=== PATIENT | female | born 1950 | race Caucasian/White ===

== ENCOUNTER 2016-11-22 18:13 | Emergency (ER) | payer OTHER ==
[~2016-11-22] VITALS: Ht 152.4 cm; Wt 100.0 kg
[~2016-11-22 18:13] MED LIST: CIPR-9 PO; GABA100C4 PO; HYDR-3533 PO; LISI-519 PO; LOVA10TA PO; PERC5TAB12 PO; PRED10 PO; SERT25TA83 PO; TOPA25TA8 PO; TRAZ50TA12 PO
[2016-11-22 18:15] VITALS: BP 226/102; PULSE 70; RESP 17; TEMP 98.2; O2SAT 98
[2016-11-22] MEDS ORDERED: PROCHLORPERAZINE INJ 10 MG/2 ML VIAL IVP ONE (19:00)
[2016-11-22] MEDS ORDERED: SODIUM CHLORIDE 0.9% FLUSH 10 ML FLUSH IVF PRN (19:00)
[2016-11-22] MEDS ORDERED: SODIUM CHLORID 0.9% 500 ML INJ 500 ML IV ONE (19:00)
[2016-11-22] MEDS ORDERED: diphenhydrAMINE HCL 50 MG/ML VIAL IVP ONE (19:00)
--- NOTE | 2016-11-22 19:20 | PD ---
HPI Chief Complaint: Neuro Symptoms/ Deficits Time Seen by Provider: 19:18 Travel History International Travel<30 days: No Contact w/Intl Traveler<30days: No Traveled to known affect area: No History of Present Illness HPI 66-year-old female presents to the emergency department for evaluation of numbness, tingling. Patient states that she has had tingling and numbness to her head for several months. However, she states that today, she noted some tingling on the left side of her face. She also reports numbness and tingling to her right arm for several months as well. The patient also reports history of migraine headaches for many years. She states she currently has a headache. She states this is consistent with her migraine headaches. She has not taken anything [id number] for her headache. She ran out of her prescribed migraine headache medications. Patient states that she fell in April and she has had the pain to her right arm since. She states that she last fell approximately 3 months ago. She currently saw a neurologist for these symptoms. She called today and stated that now her face was tingling and he told her to come the emergency department. The patient states that her last CT scan showed evidence of a prior stroke, but she did not know of this before. Patient states she is not currently on anticoagulants. PFSH Past Medical History High Cholesterol: Yes Cerebrovascular Accident: Yes Diabetes: Yes Patient Takes Glucophage: No Hypertension: Yes Kidney Stones: Yes Musculoskeletal: Yes (OSTEOGENIC IMPERFECTA) Migraines: Yes Renal Failure: Yes ?: Not Menopausal: Yes Past Surgical History Abdominal Surgery: Yes (PATCHES IN ABD) Hysterectomy: Yes Other Surgery: Yes (L TOTAL KNEE, NECK) Social History Alcohol Use: Yes (OCCASIONALLY ) Tobacco Use: No Substance Use: No Allergies-Medications (Allergen,Severity, Reaction): Coded Allergies: Penicillin (Verified Allergy, Unknown, 11/22/16) Sulfa (Verified Allergy, Unknown, 11/22/16) Reported Meds & Prescriptions Reported Meds & Active Scripts Active Reported Levothyroxine (Levothyroxine Sodium) 88 Mcg Tab 88 Mcg PO DAILY Potassium Chloride ER (Potassium Chloride) 10 Meq Tab 10 Meq PO DAILY Lasix (Furosemide) 20 Mg Tab 20 Mg PO DAILY Dicyclomine (Dicyclomine HCl) 10 Mg Cap 10-20 Mg PO QID PRN Cetirizine (Cetirizine HCl) 10 Mg Tab 10 Mg PO DAILY Depakote ER (Divalproex Sodium) 250 Mg Ayah 250 Mg PO DAILY Baclofen 10 Mg Tab 10 Mg PO BID Trazodone (Trazodone HCl) 100 Mg Tablet 100 Mg PO HS Lisinopril 2.5 Mg Tab 2.5 Mg PO DAILY Gabapentin 600 Mg Tab 600 Mg PO TID Lovastatin 10 Mg Tab 10 Mg PO DAILY Review of Systems Except as stated in HPI: all other systems reviewed are Neg Physical Exam Narrative GENERAL: Well-nourished, well-developed female patient, afebrile. SKIN: Focused skin assessment warm/dry. HEAD: Normocephalic. Atraumatic. EYES: No scleral icterus. No injection or drainage. PERRLA. EOM intact. ENT: Mucosa pink and moist. No erythema or exudates. No uvular edema. No uvular , palatal, or tonsillar deviation. Airway patent. Nasal turbinates appear normal without nasal blood, purulent drainage or septal hematoma. Bilateral tympanic membranes are clear without erythema or perforation. NECK: Supple, trachea midline. No JVD or lymphadenopathy. CARDIOVASCULAR: Regular rate and rhythm without murmurs, gallops, or rubs. RESPIRATORY: Breath sounds equal bilaterally. No accessory muscle use. Lungs sounds are clear to auscultation. GASTROINTESTINAL: Abdomen soft, non-tender, nondistended. MUSCULOSKELETAL: No cyanosis, or edema. BACK: Nontender without obvious deformity. No CVA tenderness. NEUROLOGICAL: Awake and alert. Cranial nerves II through XII intact. Motor and sensory grossly within normal limits. Five out of 5 muscle strength in all muscle groups. Normal speech. Finger to nose is normal bilaterally. Heel-to- sims is normal bilaterally. Data Data Last Documented VS Vital Signs Date Time Temp Pulse Resp B/P Pulse Ox O2 Delivery O2 Flow Rate FiO2 11/22/16 19:41 67 18 175/118 98 Room Air 11/22/16 18:15 98.2 Orders Electrocardiogram (11/22/16 18:51) Basic Metabolic Panel (Bmp) (11/22/16 18:51) Complete Blood Count With Diff (11/22/16 18:51) Magnesium (Mg) (11/22/16 18:51) Ckmb (Isoenzyme) Profile (11/22/16 18:51) Troponin I (11/22/16 18:51) Act Partial Throm Time (Ptt) (11/22/16 18:51) Prothrombin Time / Inr (Pt) (11/22/16 18:51) Ct Brain W/O Iv Contrast(Rout) (11/22/16 18:51) Ecg Monitoring (11/22/16 18:51) Iv Access Insert/Monitor (11/22/16 18:51) Oximetry (11/22/16 18:51) Sodium Chloride 0.9% Flush (Ns Flush) (11/22/16 19:00) Prochlorperazine Inj (Compazine Inj) (11/22/16 19:00) Diphenhydramine Inj (Benadryl Inj) (11/22/16 19:00) Sodium Chlorid 0.9% 500 Ml Inj (Ns 500 M (11/22/16 19:00) Labs Laboratory Tests Test 11/22/16 19:22 White Blood Count 5.5 TH/MM3 Red Blood Count 3.55 MIL/MM3 Hemoglobin 10.8 GM/DL Hematocrit 33.1 % Mean Corpuscular Volume 93.3 FL Mean Corpuscular Hemoglobin 30.5 PG Mean Corpuscular Hemoglobin 32.7 % Concent Red Cell Distribution Width 14.6 % Platelet Count 247 TH/MM3 Mean Platelet Volume 10.2 FL Neutrophils (%) (Auto) 49.1 % Lymphocytes (%) (Auto) 25.1 % Monocytes (%) (Auto) 8.7 % Eosinophils (%) (Auto) 16.0 % Basophils (%) (Auto) 1.1 % Neutrophils # (Auto) 2.7 TH/MM3 Lymphocytes # (Auto) 1.4 TH/MM3 Monocytes # (Auto) 0.5 TH/MM3 Eosinophils # (Auto) 0.9 TH/MM3 Basophils # (Auto) 0.1 TH/MM3 CBC Comment DIFF FINAL Differential Comment Prothrombin Time 10.0 SEC Prothromb Time International 0.9 RATIO Ratio Activated Partial 24.3 SEC Thromboplast Time Sodium Level 137 MEQ/L Potassium Level 5.1 MEQ/L Chloride Level 105 MEQ/L Carbon Dioxide Level 26.1 MEQ/L Anion Gap 6 MEQ/L Blood Urea Nitrogen 18 MG/DL Creatinine 1.59 MG/DL Estimat Glomerular Filtration 32 ML/MIN Rate Random Glucose 158 MG/DL Calcium Level 8.9 MG/DL Magnesium Level 2.1 MG/DL Total Creatine Kinase 88 U/L Troponin I LESS THAN 0.02 NG/ML MDM Medical Decision Making Medical Screen Exam Complete: Yes Emergency Medical Condition: Yes Medical Record Reviewed: Yes Interpretation(s) Last Impressions Head CT 11/22/16 9193 Signed Impressions: Service Date/Time: Tuesday, November 22, 2016 19:05 - CONCLUSION: Negative noncontrast CT brain. No evidence of hemorrhage. Giovanni Lerma MD Differential Diagnosis Migraine headache versus atypical migraine headache versus intracranial abnormality versus electrolyte abnormality Narrative Course 66-year-old female presents to the emergency department for evaluation of headache, numbness and tingling. These symptoms do appear chronic when speaking to the patient. EKG, CBC, BMP, magnesium, CK, troponin, PTT, PTT/INR, CT of the brain ordered and pending. Patient is given normal saline 500 mL bolus, Compazine 10 mg IV, Benadryl 25 mg IV. EKG shows sinus rhythm, heart rate 62, no acute ST changes. CBC shows slight anemia with hemoglobin 10.8, hematocrit 33.1. BMP shows elevated creatinine of 1.59, glucose 158. Magnesium is 2.1. CK is 88. Troponin is less than 0.02. Coags are unremarkable. CT of the brain is negative. Upon reexamination, patient states she would like to go home. I discussed the case with attending physician, Dr. Reveles, who agrees with plan and disposition. The patient was discharged in stable condition with instructions, including return instructions and follow up instructions. Diagnosis Primary Impression: Migraine headache Qualified Code: G43.909 - Migraine without status migrainosus, not intractable , unspecified migraine type Referrals: Neurologist 2 days Patient Instructions: General Instructions, Migraine Headache (ED) Additional Instructions: Follow-up with your primary care physician. Return to the emergency department for any acute worsening of symptoms. Med/Other Pt SpecificInfo: No Change to Meds Disposition: 01 DISCHARGE HOME Condition: Stable Lashanda Smith Nov 22, 2016 19:20
[2016-11-22] MEDS ORDERED: FURO1TAB62 PO (19:30)
[2016-11-22] MEDS ORDERED: DICY10CA12 PO (19:30)
[2016-11-22] MEDS ORDERED: POTA10TA2 PO (19:30)
[2016-11-22] MEDS ORDERED: LEVO88TA2 PO (19:30)
[2016-11-22] MEDS ORDERED: LISI2.5T3 PO (19:30)
[2016-11-22] MEDS ORDERED: CETI10 PO (19:30)
[2016-11-22] MEDS ORDERED: TRAZ100T6 PO (19:30)
[2016-11-22] MEDS ORDERED: BACL10TA PO (19:30)
[2016-11-22] MEDS ORDERED: DIVA250ER PO (19:30)
[2016-11-22] MEDS ORDERED: GABA600T PO (19:30)
[2016-11-22 19:40] VITALS: RESP 18; O2SAT 97
[2016-11-22 19:41] VITALS: BP 175/118; PULSE 67; RESP 18; O2SAT 98
--- NOTE | 2016-11-22 19:56 | RADRPT ---
EXAM DATE/TIME: 11/22/2016 19:05 [facility] COMPARISON: CT BRAIN W/O CONTRAST, May 21, 2016, 13:58. INDICATIONS : Cephalgia with right arm numbness and elevated blood pressure. RADIATION DOSE: 56.35 CTDIvol (mGy) MEDICAL HISTORY : Hypertension. Diabetes mellitus type 2. CVA. SURGICAL HISTORY : Hysterectomy. Neck surgery. ENCOUNTER: Initial ACUITY: 1 day PAIN SCALE: 6/10 LOCATION: cranial TECHNIQUE: Multiple contiguous axial images were obtained of the head. Using automated exposure control and adj ustment of the mA and/or kV according to patient size, radiation dose was kept as low as reasonably a chievable to obtain optimal diagnostic quality images. DICOM format image data is available electro nically for review and comparison. FINDINGS: CEREBRUM: The ventricles are normal for age. No evidence of midline shift, mass lesion, hemorrhage or acute in farction. No extra-axial fluid collections are seen. POSTERIOR FOSSA: The cerebellum and brainstem are intact. The 4th ventricle is midline. The cerebellopontine angle i s unremarkable. EXTRACRANIAL: The visualized portion of the orbits is intact. SKULL: The calvaria is intact. No evidence of skull fracture. CONCLUSION: Negative noncontrast CT brain. No evidence of hemorrhage. Giovanni Lerma MD on November 22, 2016 at 19:52 Board Certified Radiologist. This report was verified electronically.
[2016-11-22 19:58] LABS: AUTOMATED NEUTROPHIL # 2.7 TH/MM3 (1.8-7.7); BASOPHIL # 0.1 TH/MM3 (0-0.2); BASOPHIL % 1.1 % (0.0-2.0); EOSINOPHIL # 0.9 TH/MM3 (0-0.4); HEMATOCRIT 33.1 % (35.0-46.0); HEMO FLAGS DIFF FINAL; LYMPH % 25.1 % (9.0-44.0); LYMPHOCYTE # 1.4 TH/MM3 (1.0-4.8); MEAN CELL VOLUME 93.3 FL (80.0-100.0); MEAN CORPUSCULAR HEMOGLOBIN 30.5 PG (27.0-34.0); MEAN CORPUSCULAR HGB CONC 32.7 % (32.0-36.0); MONO % 8.7 % (0.0-8.0); NEUT % 49.1 % (16.0-70.0); PLATELET COUNT 247 TH/MM3 (150-450); RED BLOOD COUNT 3.55 MIL/MM3 (4.00-5.30); RED CELL DISTRIBUTION WIDTH 14.6 % (11.6-17.2); WHITE BLOOD COUNT 5.5 TH/MM3 (4.0-11.0)
[2016-11-22 20:08] LABS: APTT (PATIENT) 24.3 SEC (24.3-30.1); INTERNATIONAL NORMALIZED RATIO 0.9 RATIO
[2016-11-22 20:26] LABS: BICARBONATE 26.1 MEQ/L (21.0-32.0); BLOOD UREA NITROGEN 18 MG/DL (7-18); GLOMERULAR FILTRATION RATE 32 ML/MIN (>89); MAGNESIUM 2.1 MG/DL (1.5-2.5)
[2016-11-22 20:37] LABS: ANION GAP 6 MEQ/L (5-15); CHLORIDE 105 MEQ/L (98-107); SODIUM (NA) 137 MEQ/L (136-145)
[2016-11-22 20:38] LABS: CREATINE KINASE 88 U/L (26-192); POTASSIUM 5.1 MEQ/L (3.5-5.1)
--- NOTE | 2016-11-23 13:19 | EKG ---
Date Performed: 11/22/2016 Time Performed: 19:28:28 PTAGE: 66 years EKG: Sinus rhythm NORMAL ECG NO PREVIOUS TRACING DOCTOR: Tyler Victoria Interpretating Date/Time 11/23/2016 13:15:04
== END 2016-11-22 21:34 | disposition home or self-care (01) ==
LOC: NEPE 18:13
DX: G43.909 Migraine, unspecified, not intractable, without status migrainosus (principal); E78.00 Pure hypercholesterolemia, unspecified; E11.9 Type 2 diabetes mellitus without complications; I12.9 Hypertensive chronic kidney disease with stage 1 through stage 4 chronic kidney disease, or unspecified chronic kidney disease; E11.22 Type 2 diabetes mellitus with diabetic chronic kidney disease; N18.9 Chronic kidney disease, unspecified
CPT/HCPCS: 70450; 80048; 82550; 83735; 84484; 85025; 85610; 85730; 93005; 96361; 96374; 96375; 99285; J0780; J1200; J7040

== ENCOUNTER 2017-05-11 18:11 | Emergency (ER) | payer OTHER ==
[~2017-05-11 18:11] MED LIST changes: +BUTATAB6; +CETI10 PO; -CIPR-9 PO; +DICY10CA12 PO; +DIVA250ER PO; +FURO1TAB62 PO; -GABA100C4 PO; +GABA600T PO; -HYDR-3533 PO; +LEVO88TA2 PO; -LISI-519 PO; +LISI2.5T3 PO; -LOVA10TA PO; +NOVOLOGMXP SQ; +PANT40TA3 PO; -PERC5TAB12 PO; +POTA10TA2 PO; -PRED10 PO; -SERT25TA83 PO; -TOPA25TA8 PO; +TRAZ100T10 PO; -TRAZ50TA12 PO; +ZOLO25TA PO
[2017-05-11 18:21] VITALS: BP 133/77; PULSE 100; RESP 18; TEMP 98.6; O2SAT 97
--- NOTE | 2017-05-11 18:53 | PD ---
HPI Chief Complaint: Edema Time Seen by Provider: 18:31 Travel History International Travel<30 days: No Contact w/Intl Traveler<30days: No Traveled to known affect area: No History of Present Illness HPI 66 years old female complains of bilateral lower extremity swelling, shortness of breath and rash. Patient states that the symptoms started about 4 weeks ago. Patient has history of chronic kidney disease and has been seen by machine assembler in the past. Patient had kidney ultrasound the past and was told that she has problem with the right kidney. Patient is not on any diuretics. Patient denies any headache. Patient denies any chest pain. Patient states that she has shortness of breath and dyspnea on exertion. Patient denies abdominal pain. Patient denies any nausea vomiting diarrhea. Patient denies any lower extremity pain. Patient states that she had progressive swelling of the lower extremity for the past 4 weeks, worse since last night. Patient denies any recent injury to lower extremity. Patient denies history of DVT or PE. Patient has history hypertension, diabetes, hyperlipidemia. Patient is a nonsmoker. Patient denies any history of CHF. Patient was on Lasix in the past but not recently. PFSH Past Medical History High Cholesterol: Yes Cerebrovascular Accident: Yes Diabetes: Yes Hypertension: Yes Kidney Stones: Yes Musculoskeletal: Yes (OSTEOGENIC IMPERFECTA) Migraines: Yes Renal Failure: Yes ?: Not Menopausal: Yes Past Surgical History Abdominal Surgery: Yes (PATCHES IN ABD) Hysterectomy: Yes Other Surgery: Yes (L TOTAL KNEE, NECK) Social History Alcohol Use: Yes (OCCASIONALLY ) Tobacco Use: No Substance Use: No Allergies-Medications (Allergen,Severity, Reaction): Coded Allergies: Sulfa (Sulfonamide Antibiotics) (Unverified Allergy, Unknown, 05/11/17) aripiprazole (Unverified Allergy, Unknown, 05/11/17) fentanyl (Unverified Allergy, Unknown, 05/11/17) penicillin G (Unverified Allergy, Unknown, 05/11/17) Reported Meds & Prescriptions Reported Meds & Active Scripts Active Reported Novolog Mix 70-30 Inj (Insulin Aspart Prota 70%/Aspart 30%) 1,000 Unit/10 Ml Vial 10 Units SQ BID Zoloft (Sertraline HCl) 25 Mg Tab 25 Mg PO DAILY Pantoprazole (Pantoprazole Sodium) 40 Mg Tab 40 Mg PO DAILY Zqpzcshxgi-Irpulhssmmjtg-Sqvdccqg 50-325-40 Mg Tab Levothyroxine (Levothyroxine Sodium) 88 Mcg Tab 88 Mcg PO DAILY Potassium Chloride ER (Potassium Chloride) 10 Meq Tab 10 Meq PO DAILY Lasix (Furosemide) 20 Mg Tab 20 Mg PO DAILY Dicyclomine (Dicyclomine HCl) 10 Mg Cap 10-20 Mg PO QID PRN Cetirizine (Cetirizine HCl) 10 Mg Tab 10 Mg PO DAILY Depakote ER (Divalproex Sodium) 250 Mg Ayah 250 Mg PO DAILY Trazodone (Trazodone HCl) 100 Mg Tablet 100 Mg PO HS Lisinopril 2.5 Mg Tab 2.5 Mg PO DAILY Gabapentin 600 Mg Tab 600 Mg PO TID Review of Systems General / Constitutional: No: Fever Eyes: No: Visual changes HENT: No: Headaches Cardiovascular: No: Chest Pain or Discomfort Respiratory: No: Shortness of Breath Gastrointestinal: No: Abdominal Pain Genitourinary: No: Dysuria Musculoskeletal: No: Pain Skin: No Rash Neurologic: No: Weakness Psychiatric: No: Depression Endocrine: No: Polydipsia Hematologic/Lymphatic: No: Easy Bruising Physical Exam Narrative GENERAL: Well-nourished, well-developed patient. SKIN: Focused skin assessment warm/dry. Patient has diffuse papular rash bilaterally lower extremity anteriorly. HEAD: Normocephalic. EYES: No scleral icterus. No injection or drainage. NECK: Supple, trachea midline. No JVD or lymphadenopathy. CARDIOVASCULAR: Regular rate and rhythm without murmurs, gallops, or rubs. RESPIRATORY: Breath sounds equal bilaterally. No accessory muscle use. GASTROINTESTINAL: Abdomen soft, non-tender, nondistended. MUSCULOSKELETAL: No cyanosis. Patient had +2 pitting edema lower extremity. No redness no heat noted tenderness on palpation of the calf Area. Negative Homans sign. BACK: Nontender without obvious deformity. No CVA tenderness. Neurologic exam normal. Data Data Last Documented VS Vital Signs Date Time Temp Pulse Resp B/P (MAP) Pulse Ox O2 Delivery O2 Flow Rate FiO2 05/11/17 18:21 98.6 100 18 133/77 (95) 97 Orders Orders Complete Blood Count With Diff (05/11/17 18:39) Comprehensive Metabolic Panel (05/11/17 18:39) B-Type Natriuretic Peptide (05/11/17 18:39) Prothrombin Time / Inr (Pt) (05/11/17 18:39) Act Partial Throm Time (Ptt) (05/11/17 18:39) Urinalysis - C+S If Indicated (05/11/17 18:39) Thyroid Stimulating Hormone (05/11/17 18:39) Chest, Single Ap (05/11/17 18:39) Iv Access Insert/Monitor (05/11/17 18:39) Ecg Monitoring (05/11/17 18:39) Oximetry (05/11/17 18:39) Us Leg Venous Doppler Bilat (05/11/17 18:39) MDM Medical Decision Making Medical Screen Exam Complete: Yes Emergency Medical Condition: Yes Differential Diagnosis Differential diagnosis including acute exacerbation of chronic kidney disease, dependent edema, DVT. Narrative Course 66-year-old female with low extremity swelling and papular rash. History of chronic kidney disease. Cortes Kohli MD May 11, 2017 18:53
[2017-05-11 19:08] LABS: BASOPHIL # 0.3 TH/MM3 (0-0.2); BASOPHIL % 4.9 % (0.0-2.0); EOSINOPHIL # 0.2 TH/MM3 (0-0.4); EOSINOPHIL % 3.3 % (0.0-4.0); HEMATOCRIT 32.1 % (35.0-46.0); HEMOGLOBIN 10.3 GM/DL (11.6-15.3); LYMPH % 20.8 % (9.0-44.0); LYMPHOCYTE # 1.3 TH/MM3 (1.0-4.8); MEAN CORPUSCULAR HEMOGLOBIN 29.8 PG (27.0-34.0); MONO % 8.1 % (0.0-8.0); MONOCYTE # 0.5 TH/MM3 (0-0.9); NEUT % 62.9 % (16.0-70.0); PLATELET COUNT 284 TH/MM3 (150-450); RED BLOOD COUNT 3.45 MIL/MM3 (4.00-5.30); RED CELL DISTRIBUTION WIDTH 13.6 % (11.6-17.2); WHITE BLOOD COUNT 6.3 TH/MM3 (4.0-11.0)
[2017-05-11 19:17] VITALS: BP 105/68; PULSE 90; RESP 18; O2SAT 98
--- NOTE | 2017-05-11 19:24 | RADRPT ---
EXAM DATE/TIME: 05/11/2017 18:50 [facility] COMPARISON: CT THORAX W/O CONTRAST, May 21, 2016, 14:01. INDICATIONS : Short of breath. MEDICAL HISTORY : Hypertension. Diabetes mellitus type 2. CVA. SURGICAL HISTORY : Hysterectomy. ENCOUNTER: Initial ACUITY: 1 day PAIN SCORE: 0/10 LOCATION: Bilateral chest FINDINGS: A single view of the chest demonstrates the lungs to be symmetrically aerated without evidence of mas s, infiltrate or effusion. The cardiomediastinal contours are unremarkable. There are multiple bila teral fractures of the lateral mid and lower ribs, age indeterminate. There is a displaced fracture with out bridging callus on the right side of the lateral right 6th rib suggesting acute fracture. N o evidence of pneumothorax.. CONCLUSION: 1. The lungs are clear. 2. Multiple bilateral rib fractures; at least one of them (right lateral 6th rib) appears acute. Giovanni Lerma MD on May 11, 2017 at 19:20 Board Certified Radiologist. This report was verified electronically.
[2017-05-11 19:36] LABS: CHLORIDE 106 MEQ/L (98-107); SODIUM (NA) 139 MEQ/L (136-145)
[2017-05-11 19:39] LABS: BICARBONATE 24.2 MEQ/L (21.0-32.0); CALCIUM 8.1 MG/DL (8.5-10.1); GLUCOSE,RANDOM 97 MG/DL (74-106)
[2017-05-11 19:40] LABS: BLOOD UREA NITROGEN 28 MG/DL (7-18)
[2017-05-11 19:42] LABS: ALT (GPT) 24 U/L (10-53)
[2017-05-11 19:43] LABS: AST (GOT) 16 U/L (15-37); GLOMERULAR FILTRATION RATE 32 ML/MIN (>89)
[2017-05-11 19:44] LABS: TOTAL BILIRUBIN ADULT 0.5 MG/DL (0.2-1.0); TOTAL PROTEIN 6.4 GM/DL (6.4-8.2)
[2017-05-11 19:45] LABS: ALKALINE PHOSPHATASE 145 U/L (45-117)
--- NOTE | 2017-05-11 20:16 | RADRPT ---
EXAM DATE/TIME: 05/11/2017 19:21 [facility] COMPARISON: No previous studies available for comparison. INDICATIONS : Bilateral leg swelling. MEDICAL HISTORY : Stroke. Hypercholesterolemia. Gastroesophageal reflux disease. Glasses. Neuropathy. Hyperlipidemia. H ypertension. Cervical cancer. Renal failure. Kidney stones. Hypothyroidism. Diabetes. Anxiety. Depres lauren. SURGICAL HISTORY : Appendectomy.Cholecystectomy. Hysterectomy.Bilateral cataract surgery. Gastric bypass surgery. Lumpec adilene. Oophorectomy. Bladder surgery. Spinal surgery. Left knee replacement. ENCOUNTER: Initial ACUITY: 1 week PAIN SCORE: 5/10 LOCATION: Bilateral legs. TECHNIQUE: Venous ultrasound of the left and right leg was performed from the inguinal ligament to the proximal calf. Real-time, color Doppler and spectral tracing, compression and augmentation techniques were us ed. FINDINGS: RIGHT LEG: There is normal compressibility of the deep venous system from the inguinal region to the proximal ca lf. No echogenic clot is seen in the lumen of the common femoral, femoral, popliteal, veins. LEFT LEG: There is normal compressibility of the deep venous system from the inguinal region to the proximal ca lf. No echogenic clot is seen in the lumen of the common femoral, femoral, popliteal, veins. CONCLUSION: No evidence of deep venous thrombosis bilateral lower extremities. Giovanni Lerma MD on May 11, 2017 at 20:13 Board Certified Radiologist. This report was verified electronically.
[2017-05-11 20:58] VITALS: BP 158/84; PULSE 88; RESP 18; O2SAT 99
[2017-05-11 21:01] LABS: BILIRUBIN, URINE NEG (NEG); GLUCOSE,URINE NEG (NEG); KETONE, URINE NEG (NEG); NITRITE,URINE POS (NEG); PH, URINE 5.5 (5.0-8.5); URINE LEUKOCYTE ESTERASE MOD (NEG)
[2017-05-11 21:03] LABS: BLOOD, URINE TRACE (NEG)
[2017-05-11 21:04] LABS: URINE COLOR YELLOW (YELLW/STRAW)
[2017-05-11 21:06] LABS: BACTERIA, URINE MANY /hpf
[2017-05-11] MEDS ORDERED: KETOROLAC TROMETHAMINE 30 MG/ML (IVP) VIAL IV PUSH ONE (21:30)
[2017-05-11] MEDS ORDERED: oxyCODONE/ACETAMINOPHEN 5 MG/325 MG TAB PO ONE (21:30)
[2017-05-11 22:40] VITALS: BP 140/71; PULSE 82; RESP 18; O2SAT 98
--- NOTE | 2017-05-11 23:01 | RADRPT ---
EXAM DATE/TIME: 05/11/2017 21:38 [facility] COMPARISON: CT THORAX W/O CONTRAST, May 21, 2016, 14:01. INDICATIONS : Abnormal chest radiograph. Evaluate rib fractures. RADIATION DOSE: 28.50 CTDIvol (mGy) ; Patient body habitus MEDICAL HISTORY : Cardiovascular disease. Diabetes mellitus type 2. Osteogenesis imperfecta. SURGICAL HISTORY : None. ENCOUNTER: Initial ACUITY: 1 day PAIN SCALE: 0/10 LOCATION: chest TECHNIQUE: Volumetric scanning of the chest was performed. Using automated exposure control and adjustment of t he mA and/or kV according to patient size, radiation dose was kept as low as reasonably achievable to obtain optimal diagnostic quality images. DICOM format image data is available electronically for r eview and comparison. Follow-up recommendations for detected pulmonary nodules are based at a minimum on nodule size and pa tient risk factors according to Fleischner Society Guidelines. FINDINGS: LUNGS: There is no consolidation or pneumothorax. No concerning pulmonary nodule is visualized. PLEURAE: There is no pleural thickening or pleural effusion. MEDIASTINUM: The heart and great vessels demonstrate no acute abnormality. There is no mediastinal or hilar lymph adenopathy. AXILLAE: Within normal limits. No lymphadenopathy. MUSCULOSKELETAL: Multiple old left rib fractures are similar in appearance to 2016. On the right side, there are mult iple old rib fractures which are similar in configuration and appearance to prior examination in 2016 . There is one new rib fracture since the 2016 exam, lateral right 6th rib, but there appears to be some bridging callus across the fracture signifying that this is not acute. CONCLUSION: No acute findings in the chest. Multiple healed bilateral rib fractures. Giovanni Lerma MD on May 11, 2017 at 22:55 Board Certified Radiologist. This report was verified electronically.
[2017-05-11] MEDS ORDERED: IBUP-232 PO (23:24)
[2017-05-11] MEDS ORDERED: PERC5TAB12 PO (23:24)
--- NOTE | 2017-05-11 23:24 | PD ---
Physical Exam Date Seen by Provider: May 11, 2017 Time Seen by Provider: 19:30 Narrative Patient is having pain on her right rib area where she fell backwards after she received a shock from her hot plate apparently. She twisted in a weird way did not fall to the ground and she felt a pop and has pain in her right ribs. Signed out to me for follow-up of the ultrasounds to rule out DVTs in her lower extremities which were negative. And x-ray shows a fracture in the right rib but it reports multiple rib fractures. I do a CT to rule out what is old and what is no and there seems to be only one new rib fracture on the right. She is given Percocet and Toradol she feels better I will discharge her with [place] cortisone cream for her legs which possibly had aren't allergic reaction she will have follow-up about her leg edema and Lasix with her doctor and I will give her pain medication for the rib fracture discharged home. Data Data Last Documented VS Vital Signs Date Time Temp Pulse Resp B/P (MAP) Pulse Ox O2 Delivery O2 Flow Rate FiO2 05/11/17 22:43 Room Air 05/11/17 22:40 82 18 140/71 (94) 98 05/11/17 18:21 98.6 Orders Orders Complete Blood Count With Diff (05/11/17 18:39) Comprehensive Metabolic Panel (05/11/17 18:39) B-Type Natriuretic Peptide (05/11/17 18:39) Prothrombin Time / Inr (Pt) (05/11/17 18:39) Act Partial Throm Time (Ptt) (05/11/17 18:39) Urinalysis - C+S If Indicated (05/11/17 18:39) Thyroid Stimulating Hormone (05/11/17 18:39) Chest, Single Ap (05/11/17 18:39) Iv Access Insert/Monitor (05/11/17 18:39) Ecg Monitoring (05/11/17 18:39) Oximetry (05/11/17 18:39) Us Leg Venous Doppler Bilat (05/11/17 18:39) Urine Culture (05/11/17 20:50) Oxycodone-Acetamin 5-325 Mg (Percocet (05/11/17 21:30) Ketorolac Inj (Toradol Inj) (05/11/17 21:30) Ct Thorax/ Chest Wo Iv Contras (05/11/17 ) Labs Laboratory Tests Test 05/11/17 19:00 05/11/17 20:50 White Blood Count 6.3 TH/MM3 Red Blood Count 3.45 MIL/MM3 Hemoglobin 10.3 GM/DL Hematocrit 32.1 % Mean Corpuscular Volume 93.0 FL Mean Corpuscular Hemoglobin 29.8 PG Mean Corpuscular Hemoglobin Concent 32.0 % Red Cell Distribution Width 13.6 % Platelet Count 284 TH/MM3 Mean Platelet Volume 8.0 FL Neutrophils (%) (Auto) 62.9 % Lymphocytes (%) (Auto) 20.8 % Monocytes (%) (Auto) 8.1 % Eosinophils (%) (Auto) 3.3 % Basophils (%) (Auto) 4.9 % Neutrophils # (Auto) 4.0 TH/MM3 Lymphocytes # (Auto) 1.3 TH/MM3 Monocytes # (Auto) 0.5 TH/MM3 Eosinophils # (Auto) 0.2 TH/MM3 Basophils # (Auto) 0.3 TH/MM3 CBC Comment DIFF FINAL Differential Comment Prothrombin Time 10.0 SEC Prothromb Time International Ratio 1.0 RATIO Activated Partial Thromboplast Time 23.7 SEC Blood Urea Nitrogen 28 MG/DL Creatinine 1.60 MG/DL Random Glucose 97 MG/DL Total Protein 6.4 GM/DL Albumin 3.0 GM/DL Calcium Level 8.1 MG/DL Alkaline Phosphatase 145 U/L Aspartate Amino Transf (AST/SGOT) 16 U/L Alanine Aminotransferase (ALT/SGPT) 24 U/L Total Bilirubin 0.5 MG/DL Sodium Level 139 MEQ/L Potassium Level 4.4 MEQ/L Chloride Level 106 MEQ/L Carbon Dioxide Level 24.2 MEQ/L Anion Gap 9 MEQ/L Estimat Glomerular Filtration Rate 32 ML/MIN B-Type Natriuretic Peptide 8 PG/ML Thyroid Stimulating Hormone 3rd Gen 1.540 uIU/ML Urine Color YELLOW Urine Turbidity CLOUDY Urine pH 5.5 Urine Specific [place] 1.012 Urine Protein NEG mg/dL Urine Glucose (UA) NEG mg/dL Urine Ketones NEG mg/dL Urine Occult Blood TRACE Urine Nitrite POS Urine Bilirubin NEG Urine Leukocyte Esterase MOD Urine RBC 3-5 /hpf Urine WBC 20-24 /hpf Urine Squamous Epithelial Cells 6-8 /hpf Urine Bacteria MANY /hpf Microscopic Urinalysis Comment CULTURE INDICATED MDM Supervised Visit with JARED: No Diagnosis Primary Impression: Right rib fracture Qualified Codes: S22.31XA - Fracture of one rib, right side, initial encounter for closed fracture Additional Impression: Leg edema Scripts Hydrocortisone Topical (Hydrocortisone Topical) 1% Cream 1 APPLIC TOPICAL BID for Rash/Inflammation, #30 GM 2 Refills Prov: Niles Cortez MD 05/11/17 Ibuprofen (Ibuprofen) 600 Mg Tab 600 MG PO Q6H Y for PAIN, #20 TAB 0 Refills Prov: Niles Cortez MD 05/11/17 Oxycodone-Acetaminophen (Percocet) 5-325 mg Tab 1 TAB PO Q6H Y for PAIN, #15 TAB 0 Refills Prov: Niles Cortez MD 05/11/17 Disposition: 01 DISCHARGE HOME Condition: Good Niles Cortez MD May 11, 2017 23:24
[2017-05-11] MEDS ORDERED: HYDR1CRE TOPICAL (23:26)
== END 2017-05-11 23:38 | disposition home or self-care (01) ==
LOC: PHED 18:11
DX: S22.31XA Fracture of one rib, right side, initial encounter for closed fracture (principal); R60.0 Localized edema; E78.00 Pure hypercholesterolemia, unspecified; E11.22 Type 2 diabetes mellitus with diabetic chronic kidney disease; I12.9 Hypertensive chronic kidney disease with stage 1 through stage 4 chronic kidney disease, or unspecified chronic kidney disease; Q78.0 Osteogenesis imperfecta; N39.0 Urinary tract infection, site not specified; B96.20 Unspecified Escherichia coli [E. coli] as the cause of diseases classified elsewhere; B96.1 Klebsiella pneumoniae [K. pneumoniae] as the cause of diseases classified elsewhere; Z16.11 Resistance to penicillins; Z16.23 Resistance to quinolones and fluoroquinolones; Z86.73 Personal history of transient ischemic attack (TIA), and cerebral infarction without residual deficits; Z79.4 Long term (current) use of insulin
CPT/HCPCS: 71010; 71250; 80053; 81001; 83880; 84443; 85025; 85610; 85730; 87077; 87086; 87186; 93970; 96374; 99285; J1885

== ENCOUNTER 2017-05-15 17:34 | Inpatient (IN) | payer OTHER, MEDICARE ==
[~2017-05-15] VITALS: Ht 152.4 cm; Wt 119.9 kg
[~2017-05-15 17:34] MED LIST changes: -BUTATAB6; -DICY10CA12 PO; -DIVA250ER PO; -FURO1TAB62 PO; +HYDR1CRE TOPICAL; +IBUP-232 PO; -LISI2.5T3 PO; +PERC5TAB12 PO; -POTA10TA2 PO; -ZOLO25TA PO
[2017-05-15 17:44] VITALS: BP 142/72; PULSE 112; RESP 19; TEMP 98.4; O2SAT 98
[2017-05-15 17:48] VITALS: BP 142/72; PULSE 112; RESP 19; TEMP 98.4; O2SAT 98
[2017-05-15] MEDS ORDERED: ACETAMINOPHEN/HYDROcodone 325 MG/5 MG TAB PO ONE (18:00)
--- NOTE | 2017-05-15 18:31 | RADRPT ---
EXAM DATE/TIME: 05/15/2017 17:47 [facility] COMPARISON: No previous studies available for comparison. INDICATIONS : Pain post fall. MEDICAL HISTORY : Osteogenic imperfecta, osteoarthritis, fibromyalgia. SURGICAL HISTORY : Cervical fusion, Left knee, bilateral arthroscopy. ENCOUNTER: Initial ACUITY: 1 day PAIN SCORE: 10/10 LOCATION: Left Ankle FINDINGS: 3 views of left ankle. Oblique fracture of the distal fibula shaft with 3 mm displacement. Horizontal medial malleolus fracture with 6 mm displacement. Moderate sized plantar calcaneal spur. CONCLUSION: Fractures of the medial malleolus and distal fibula shaft. Sohan Ortiz MD on May 15, 2017 at 18:27 Board Certified Radiologist. This report was verified electronically.
[2017-05-15] MEDS ORDERED: HYDROmorphone HCL PF 4 MG/ML VIAL IM ONE (18:45)
[2017-05-15] MEDS ORDERED: PERC5TAB12 PO (18:47)
--- NOTE | 2017-05-15 18:47 | PD ---
HPI . Ankle injury Chief Complaint: Fall Time Seen by Provider: 17:39 Travel History International Travel<30 days: No Contact w/Intl Traveler<30days: No Traveled to known affect area: No History of Present Illness HPI Patient presents to us via [facility] dermis stepping getting into her car and twisting her left ankle. She comes in complaining with 10 out of 10 left ankle pain. She denies any other injuries. Pain is exacerbated by palpation. She has not been able to stand on the ankle since the accident occurred. PFSH Past Medical History Cardiovascular Problems: Yes High Cholesterol: Yes Cerebrovascular Accident: Yes Diabetes: Yes Patient Takes Glucophage: No Hypertension: Yes Kidney Stones: Yes Musculoskeletal: Yes (OSTEOGENIC IMPERFECTA) Respiratory: Yes Migraines: Yes Renal Failure: Yes Influenza Vaccination: No Menopausal: Yes Past Surgical History Abdominal Surgery: Yes (PATCHES IN ABD) Appendectomy: Yes Cholecystectomy: Yes Hysterectomy: Yes Other Surgery: Yes (L TOTAL KNEE, NECK) Social History Alcohol Use: No Tobacco Use: No Substance Use: No Allergies-Medications (Allergen,Severity, Reaction): Coded Allergies: Sulfa (Sulfonamide Antibiotics) (Unverified Allergy, Unknown, 05/15/17) aripiprazole (Unverified Allergy, Unknown, 05/15/17) fentanyl (Unverified Allergy, Unknown, 05/15/17) penicillin G (Unverified Allergy, Unknown, 05/15/17) Reported Meds & Prescriptions Reported Meds & Active Scripts Active Hydrocortisone Topical 1% Cream 1 Applic TOPICAL BID Ibuprofen 600 Mg Tab 600 Mg PO Q6H PRN Percocet (Oxycodone-Acetaminophen) 5-325 mg Tab 1 Tab PO Q6H PRN Reported Novolog Mix 70-30 Inj (Insulin Aspart Prota 70%/Aspart 30%) 1,000 Unit/10 Ml Vial 10 Units SQ BID Pantoprazole (Pantoprazole Sodium) 40 Mg Tab 40 Mg PO DAILY Levothyroxine (Levothyroxine Sodium) 88 Mcg Tab 88 Mcg PO DAILY Cetirizine (Cetirizine HCl) 10 Mg Tab 10 Mg PO DAILY Trazodone (Trazodone HCl) 100 Mg Tablet 100 Mg PO HS Gabapentin 600 Mg Tab 600 Mg PO TID Review of Systems Except as stated in HPI: all other systems reviewed are Neg Musculoskeletal: Positive: Arthralgias, Limited ROM Physical Exam Narrative GENERAL: Awake and alert and in no acute distress. SKIN: Warm and dry. HEAD: Normocephalic/atraumatic. EYES: Pupils are equal. Extraocular movements are intact. NECK: Normal range of motion. CARDIOVASCULAR: Regular rate and rhythm. RESPIRATORY: Nonlabored respirations. MUSCULOSKELETAL: She is a large woman so swelling is difficult to determine. I don't appreciate an obvious deformity of her left ankle. She does have bimalleolar tenderness. Pain is exacerbated by manipulation of the ankle. The ankle is stable. She is distally neurovascularly intact. NEUROLOGICAL: Nonfocal. PSYCHIATRIC: Appropriate mood and affect. Data Data Last Documented VS Vital Signs Date Time Temp Pulse Resp B/P (MAP) Pulse Ox O2 Delivery O2 Flow Rate FiO2 05/15/17 17:48 98.4 112 19 142/72 (95) 98 Room Air Orders Orders Ankle, Complete ([id number]) (05/15/17 17:39) Acetamin-Hydrocod 325-5 Mg ([place] 5-325 (05/15/17 18:00) [employer] Request For Service (05/15/17 18:39) Hydromorphone Pf Inj (Dilaudid Pf Inj) (05/15/17 18:45) MDM Medical Decision Making Medical Screen Exam Complete: Yes Emergency Medical Condition: Yes Differential Diagnosis Differential diagnosis of extremity trauma includes but is not limited to fracture, sprain or strain, dislocation, contusion Narrative Course This patient presents with a chief complaint of a left ankle injury after a trip and fall. Last Impressions Ankle X-Ray 05/15/17 [id number] Signed Impressions: Service Date/Time: Monday, May 15, 2017 17:47 - CONCLUSION: Fractures of the medial malleolus and distal fibula shaft. Sohan Ortiz MD I have discussed the results of her x-rays with her. It is Viraj Wilkins. She would like to go home and follow-up with orthopedics as an outpatient for possible surgical repair. I have consult at the or the [facility] for splinting and crutches. I will give her prescription for Percocet. I will give her a referral to Dr. Duffy. Diagnosis Primary Impression: Closed left ankle fracture Qualified Codes: S82.892A - Other fracture of left lower leg, initial encounter for closed fracture Referrals: Benito Duffy MD Patient Instructions: Ankle Fracture (DC), General Instructions, Narcotic given in the ED Med/Other Pt SpecificInfo: Prescription(s) given Scripts Oxycodone-Acetaminophen (Percocet) 5-325 mg Tab 1 TAB PO Q4H Y for PAIN, #30 TAB 0 Refills Prov: Katherine Richmond MD 05/15/17 Disposition: 01 DISCHARGE HOME Condition: Stable Katherine Richmond MD May 15, 2017 18:47
--- NOTE | 2017-05-15 19:02 | PD ---
Physical Exam Date Seen by Provider: May 15, 2017 Narrative The orthostatic was in the room to splint her. The patient was talking on her cell phone on speaker phone. She was apparently speaking with her . Her reportedly told her that he would not come to pick her up. She then stated that she had hit her head. She requested to be admitted. Data Data Last Documented VS Vital Signs Date Time Temp Pulse Resp B/P (MAP) Pulse Ox O2 Delivery O2 Flow Rate FiO2 05/15/17 19:48 108 18 118/68 (85) 100 Room Air 05/15/17 17:48 98.4 Orders Orders Ankle, Complete ([id number]) (05/15/17 17:39) Acetamin-Hydrocod 325-5 Mg ([place] 5-325 (05/15/17 18:00) [employer] Request For Service (05/15/17 18:39) Hydromorphone Pf Inj (Dilaudid Pf Inj) (05/15/17 18:45) Electrocardiogram (05/15/17 ) Complete Blood Count With Diff (05/15/17 18:53) Basic Metabolic Panel (Bmp) (05/15/17 18:53) Prothrombin Time / Inr (Pt) (05/15/17 18:53) Act Partial Throm Time (Ptt) (05/15/17 18:53) Urinalysis - C+S If Indicated (05/15/17 18:53) Ct Brain W/O Iv Contrast(Rout) (05/15/17 18:53) Electrocardiogram (05/15/17 ) Consult Orthopedic (05/15/17 ) (Hub Use Only)Inp Phy Cons/Ref (05/15/17 ) Hydromorphone Pf Inj (Dilaudid Pf Inj) (05/15/17 20:30) Admit To Inpatient (05/15/17 ) Vital Signs (Adult) Q4H (05/15/17 21:23) Activity Oob With Assistance (05/15/17 21:23) Diet Heart Healthy (05/16/17 Breakfast) Sodium Chloride 0.9% Flush (Ns Flush) (05/15/17 21:30) Sodium Chloride 0.9% Flush (Ns Flush) (05/16/17 09:00) Acetaminophen (Tylenol) (05/15/17 21:30) Ondansetron Inj (Zofran Inj) (05/15/17 21:30) Basic Metabolic Panel (Bmp) (05/16/17 06:00) Complete Blood Count With Diff (05/16/17 06:00) Scd Bilateral/Knee High DAVID.BID (05/15/17 21:23) Jamie Bilateral/Knee High DAVID.QSHIFT (05/15/17 21:23) Naloxone Inj (Narcan Inj) (05/15/17 21:30) Magnesium Hydroxide Liq (Milk Of Magnesi (05/15/17 21:30) Sennosides (Senokot) (05/15/17 21:30) Bisacodyl Supp (Dulcolax Supp) (05/15/17 21:30) Inpatient Certification (05/15/17 ) ^ Other Nursing Orders (05/15/17 21:23) Admit Order (Ed Use Only) (05/15/17 ) Vital Signs (Adult) Q4H (05/15/17 21:23) Diet Npo (05/16/17 Breakfast) Activity Bed Rest (05/15/17 21:23) Notify Dr: Other (05/15/17 21:23) Labs Laboratory Tests Test 05/15/17 20:20 White Blood Count 7.0 TH/MM3 Red Blood Count 3.42 MIL/MM3 Hemoglobin 10.6 GM/DL Hematocrit 32.9 % Mean Corpuscular Volume 96.2 FL Mean Corpuscular Hemoglobin 31.0 PG Mean Corpuscular Hemoglobin Concent 32.2 % Red Cell Distribution Width 13.8 % Platelet Count 253 TH/MM3 Mean Platelet Volume 8.1 FL Neutrophils (%) (Auto) 69.7 % Lymphocytes (%) (Auto) 15.0 % Monocytes (%) (Auto) 9.2 % Eosinophils (%) (Auto) 5.3 % Basophils (%) (Auto) 0.8 % Neutrophils # (Auto) 4.9 TH/MM3 Lymphocytes # (Auto) 1.1 TH/MM3 Monocytes # (Auto) 0.6 TH/MM3 Eosinophils # (Auto) 0.4 TH/MM3 Basophils # (Auto) 0.1 TH/MM3 CBC Comment DIFF FINAL Differential Comment Prothrombin Time 10.4 SEC Prothromb Time International Ratio 1.0 RATIO Activated Partial Thromboplast Time 26.4 SEC Blood Urea Nitrogen 38 MG/DL Creatinine 1.65 MG/DL Random Glucose 133 MG/DL Calcium Level 8.3 MG/DL Sodium Level 140 MEQ/L Potassium Level 4.6 MEQ/L Chloride Level 110 MEQ/L Carbon Dioxide Level 22.5 MEQ/L Anion Gap 8 MEQ/L Estimat Glomerular Filtration Rate 31 ML/MIN MDM Supervised Visit with JARED: No Narrative Course The patient has no palpable contusion of her scalp. I have added a CT of her head, EKG, chest x-ray, routine labs including a PT and PTT. Once all of this is back, I will consult medicine for admission with a consultation to orthopedics. Last Impressions Head CT 05/15/17 1853 Signed Impressions: Service Date/Time: Monday, May 15, 2017 19:19 - CONCLUSION: No acute intracranial findings. Sohan Ortiz MD Ankle X-Ray 05/15/17 [id number] Signed Impressions: Service Date/Time: Monday, May 15, 2017 17:47 - CONCLUSION: Fractures of the medial malleolus and distal fibula shaft. Sohan Ortiz MD Physician Communication Physician Communication Dr. Duffy and Brown Grier. The plan is to operate tomorrow. Diagnosis Primary Impression: Closed left ankle fracture Qualified Codes: S82.892A - Other fracture of left lower leg, initial encounter for closed fracture Admitting Information Admitting Physician Requests: Admit Condition: Stable Katherine Richmond MD May 15, 2017 19:02
[2017-05-15 19:48] VITALS: BP 118/68; PULSE 108; RESP 18; O2SAT 100
--- NOTE | 2017-05-15 19:54 | RADRPT ---
EXAM DATE/TIME: 05/15/2017 19:19 [facility] COMPARISON: CT BRAIN W/O CONTRAST, November 22, 2016, 19:05. INDICATIONS : Trauma, fall today. RADIATION DOSE: 34.84 CTDIvol (mGy) MEDICAL HISTORY : Stroke. Hypertension. cervical cancer, diabetes SURGICAL HISTORY : Hysterectomy. ENCOUNTER: Initial ACUITY: 1 day PAIN SCALE: 0/10 LOCATION: Bilateral head TECHNIQUE: Multiple contiguous axial images were obtained of the head. Using automated exposure control and adj ustment of the mA and/or kV according to patient size, radiation dose was kept as low as reasonably a chievable to obtain optimal diagnostic quality images. DICOM format image data is available electro nically for review and comparison. FINDINGS: CEREBRUM: The ventricles are normal for age. No evidence of midline shift, mass lesion, hemorrhage or acute in farction. No extra-axial fluid collections are seen. POSTERIOR FOSSA: The cerebellum and brainstem are intact. The 4th ventricle is midline. The cerebellopontine angle i s unremarkable. EXTRACRANIAL: The visualized portion of the orbits is intact. SKULL: The calvaria is intact. No evidence of skull fracture. CONCLUSION: No acute intracranial findings. Sohan Ortiz MD on May 15, 2017 at 19:51 Board Certified Radiologist. This report was verified electronically.
[2017-05-15] MEDS ORDERED: HYDROmorphone HCL PF 2 MG/ML VIAL IV PUSH ONE (20:30)
[2017-05-15 20:37] LABS: AUTOMATED NEUTROPHIL # 4.9 TH/MM3 (1.8-7.7); BASOPHIL # 0.1 TH/MM3 (0-0.2); BASOPHIL % 0.8 % (0.0-2.0); EOSINOPHIL # 0.4 TH/MM3 (0-0.4); EOSINOPHIL % 5.3 % (0.0-4.0); HEMATOCRIT 32.9 % (35.0-46.0); HEMOGLOBIN 10.6 GM/DL (11.6-15.3); LYMPHOCYTE # 1.1 TH/MM3 (1.0-4.8); MEAN CELL VOLUME 96.2 FL (80.0-100.0); MEAN CORPUSCULAR HGB CONC 32.2 % (32.0-36.0); MEAN PLATELET VOLUME 8.1 FL (7.0-11.0); MONO % 9.2 % (0.0-8.0); MONOCYTE # 0.6 TH/MM3 (0-0.9); NEUT % 69.7 % (16.0-70.0); PLATELET COUNT 253 TH/MM3 (150-450); RED BLOOD COUNT 3.42 MIL/MM3 (4.00-5.30); RED CELL DISTRIBUTION WIDTH 13.8 % (11.6-17.2)
[2017-05-15 20:47] LABS: PROTHROMBIN TIME - PATIENT 10.4 SEC (9.8-11.6)
[2017-05-15 21:00] LABS: BICARBONATE 22.5 MEQ/L (21.0-32.0); CALCIUM 8.3 MG/DL (8.5-10.1); CREATININE 1.65 MG/DL (0.50-1.00)
[2017-05-15] MEDS ORDERED: MAGNESIUM HYDROXIDE SUSP 30 ML CUP PO PRN (21:30)
[2017-05-15] MEDS ORDERED: BISACODYL 10 MG SUPP RECTAL PRN (21:30)
[2017-05-15] MEDS ORDERED: GLUCAGON 1 MG/ML VIAL OTHER PRN (21:30)
[2017-05-15] MEDS ORDERED: ONDANSETRON HCL 4 MG/2 ML VIAL IVP PRN (21:30)
[2017-05-15] MEDS ORDERED: SODIUM CHLORIDE 0.9% FLUSH 10 ML FLUSH IV FLUSH PRN (21:30)
[2017-05-15] MEDS ORDERED: DEXTROSE 50% IN WATER 50 ML VIAL(D50) IV PUSH PRN (21:30)
[2017-05-15] MEDS ORDERED: SENNOSIDES 8.6 MG TAB PO PRN (21:30)
[2017-05-15] MEDS ORDERED: NALOXONE HCL 0.4 MG/ML AMP IV PUSH PRN (21:30)
[2017-05-15] MEDS ORDERED: ACETAMINOPHEN 325 MG TAB PO PRN (21:30)
--- NOTE | 2017-05-15 22:10 | HHI.HP ---
[facility] Service [facility] Primary Care Physician Lui Jacobson MD Admission Diagnosis left ankle fx Diagnoses: Travel History International Travel<30 Days: No Contact w/Intl Traveler <30 Da: No Traveled to Known Affected Are: No History of Present Illness 66-year-old female with a past medical history significant for osteogenesis imperfecta, insulin-dependent diabetes mellitus, hypertension and CKD stage IV presents to the emergency department after suffering a fall earlier today. The patient was reportedly getting in her car when she fell hitting her head on the sidewalk. She is unsure if she lost consciousness or not. She has a history of previous falls without memory of the events. She states she would just " wake up on the ground." Head CT negative. Left ankle x-ray showed fractures of the medial malleolus and distal fibula shaft. Review of Systems Denies fever or chills Denies blurry vision, otorrhea, rhinorrhea Denies sore throat and cough No chest pain, palpitations, shortness of breath No abdominal pain Denies constipation/diarrhea/nausea/vomiting Denies muscle pain/weakness No rashes Past Family Social History Past Medical History Osteogenesis imperfecta Insulin-dependent diabetes mellitus Hypertension CKD stage IV Past Surgical History Hysterectomy Left knee replacement Neck fusion Cholecystectomy Appendectomy Reported Medications Reported Meds & Active Scripts Active Hydrocortisone Topical 1% Cream 1 Applic TOPICAL BID Ibuprofen 600 Mg Tab 600 Mg PO Q6H PRN Percocet (Oxycodone-Acetaminophen) 5-325 mg Tab 1 Tab PO Q6H PRN Reported Novolog Mix 70-30 Inj (Insulin Aspart Prota 70%/Aspart 30%) 1,000 Unit/10 Ml Vial 10 Units SQ BID Pantoprazole (Pantoprazole Sodium) 40 Mg Tab 40 Mg PO DAILY Levothyroxine (Levothyroxine Sodium) 88 Mcg Tab 88 Mcg PO DAILY Cetirizine (Cetirizine HCl) 10 Mg Tab 10 Mg PO DAILY Trazodone (Trazodone HCl) 100 Mg Tablet 100 Mg PO HS Gabapentin 600 Mg Tab 600 Mg PO TID Allergies: Coded Allergies: Sulfa (Sulfonamide Antibiotics) (Unverified Allergy, Unknown, 05/15/17) aripiprazole (Unverified Allergy, Unknown, 05/15/17) fentanyl (Unverified Allergy, Unknown, 05/15/17) penicillin G (Unverified Allergy, Unknown, 05/15/17) Family History Father of MD at age 66. Mother with diabetes mellitus. Social History Occasional alcohol. Denies tobacco, illicit drugs. Physical Exam Vital Signs Vital Signs Date Time Temp Pulse Resp B/P (MAP) Pulse Ox O2 Delivery O2 Flow Rate FiO2 05/15/17 19:48 108 18 118/68 (85) 100 Room Air 05/15/17 17:48 98.4 112 19 142/72 (95) 98 Room Air 05/15/17 17:47 112 19 98 Room Air 05/15/17 17:44 98.4 112 19 142/72 (95) 98 Physical Exam GENERAL: Obese, female lying in bed SKIN: No rashes, ecchymoses or lesions. Cool and dry. HEAD: Atraumatic. Normocephalic. No temporal or scalp tenderness. EYES: Pupils equal round and reactive. Extraocular motions intact. No scleral icterus. No injection or drainage. ENT: Nose without bleeding, purulent drainage or septal hematoma. Throat without erythema, tonsillar hypertrophy or exudate. Uvula midline. Airway patent. NECK: Trachea midline. No JVD or lymphadenopathy. Supple, nontender, no meningeal signs. CARDIOVASCULAR: Regular rate and rhythm without murmurs, gallops, or rubs. RESPIRATORY: Clear to auscultation. Breath sounds equal bilaterally. No wheezes , rales, or rhonchi. GASTROINTESTINAL: Abdomen soft, non-tender, nondistended. No hepato-splenomegaly , or palpable masses. No guarding. MUSCULOSKELETAL: Extremities without clubbing, cyanosis, or edema. No joint tenderness, effusion, or edema noted. No calf tenderness. Left ankle in splint , able to move all 5 toes. Neurovascularly intact. NEUROLOGICAL: Awake and alert. Cranial nerves II through XII intact. Motor and sensory grossly within normal limits. Normal speech. Laboratory Laboratory Tests Test 05/15/17 20:20 White Blood Count 7.0 Red Blood Count 3.42 Hemoglobin 10.6 Hematocrit 32.9 Mean Corpuscular Volume 96.2 Mean Corpuscular Hemoglobin 31.0 Mean Corpuscular Hemoglobin Concent 32.2 Red Cell Distribution Width 13.8 Platelet Count 253 Mean Platelet Volume 8.1 Neutrophils (%) (Auto) 69.7 Lymphocytes (%) (Auto) 15.0 Monocytes (%) (Auto) 9.2 Eosinophils (%) (Auto) 5.3 Basophils (%) (Auto) 0.8 Neutrophils # (Auto) 4.9 Lymphocytes # (Auto) 1.1 Monocytes # (Auto) 0.6 Eosinophils # (Auto) 0.4 Basophils # (Auto) 0.1 CBC Comment DIFF FINAL Differential Comment Prothrombin Time 10.4 Prothromb Time International Ratio 1.0 Activated Partial Thromboplast Time 26.4 Blood Urea Nitrogen 38 Creatinine 1.65 Random Glucose 133 Calcium Level 8.3 Sodium Level 140 Potassium Level 4.6 Chloride Level 110 Carbon Dioxide Level 22.5 Anion Gap 8 Estimat Glomerular Filtration Rate 31 Result Diagram: 05/15/17201905/15/172019 Caprini VTE Risk Assessment Caprini VTE Risk Assessment: Mod/High Risk (score >= 2) Caprini Risk Assessment Model Point Value = 1 Point Value = 2 Point Value = 3 Point Value = 5 Age 41-60 Minor surgery BMI > 25 kg/m2 Swollen legs Varicose veins or History of unexplained or recurrent spontaneous Oral contraceptives or hormone replacement Sepsis (< 1 month) Serious lung disease, including pneumonia (< 1 month) Abnormal pulmonary function Acute myocardial infarction Congestive heart failure (< 1 month) History of inflammatory bowel disease Medical patient at bed rest Age 61-74 Arthroscopic surgery Major open surgery (> 45 min) Laparoscopic surgery (> 45 min) Malignancy Confined to bed (> 72 hours) Immobilizing plaster cast Central venous access Age >= 75 History of VTE Family history of VTE Factor V Leiden Prothrombin [id number] Lupus anticoagulant Anticardiolipin antibodies Elevated serum homocysteine Heparin-induced thrombocytopenia Other congenital or acquired thrombophilia Stroke (< 1 month) Elective arthroplasty Hip, pelvis, or leg fracture Acute spinal cord injury (< 1 month) Prophylaxis Regimen Total Risk Factor Score Risk Level Prophylaxis Regimen 0-1 Low Early ambulation 2 Moderate Order ONE of the following: *Sequential Compression Device (SCD) *Heparin 5000 units SQ BID 3-4 Higher Order ONE of the following medications: *Heparin 5000 units SQ TID *Enoxaparin/Lovenox 40 mg SQ daily (WT < 150 kg, CrCl > 30 mL/min) *Enoxaparin/Lovenox 30 mg SQ daily (WT < 150 kg, CrCl > 10-29 mL/min) *Enoxaparin/Lovenox 30 mg SQ BID (WT < 150 kg, CrCl > 30 mL/min) AND/OR *Sequential Compression Device (SCD) 5 or more Highest Order ONE of the following medications: *Heparin 5000 units SQ TID (Preferred with Epidurals) *Enoxaparin/Lovenox 40 mg SQ daily (WT < 150 kg, CrCl > 30 mL/min) *Enoxaparin/Lovenox 30 mg SQ daily (WT < 150 kg, CrCl > 10-29 mL/min) *Enoxaparin/Lovenox 30 mg SQ BID (WT < 150 kg, CrCl > 30 mL/min) AND *Sequential Compression Device (SCD) Assessment and Plan Assessment and Plan Assessment/plan: 1. Left ankle fracture X-ray shows fractures of the medial malleolus and distal fibula shaft Orthopedic surgery consulted, appreciate assistance Nothing by mouth after midnight in anticipation of operative intervention 2. Frequent falls Patient is unsure whether she lost consciousness or not Reports history of frequent falls with no memory of the events Head CT negative Syncopal workup pending; carotid ultrasound and echo 3. CKD stage IV Creatinine 1.65, baseline Monitor renal function Avoid nephrotoxic agents 4. Insulin-dependent diabetes mellitus Holding home insulin as patient nothing by mouth SSI Monitor blood glucose 5. Hypothyroidism/GERD Continue home medications FEN NPO after midnight Electrolytes: monitor and replete prn Holding pharmacologic anticoagulation in anticipation of operative intervention Case discussed with ER physician at length Physician Certification 2 Midnight Certification Type: Admission for Inpatient Services Order for Inpatient Services The services are ordered in accordance with Medicare regulations or non- Medicare payer requirements, as applicable. In the case of services not specified as inpatient-only, they are appropriately provided as inpatient services in accordance with the 2-midnight benchmark. Estimated LOS (days): 2 2 days is the estimated time the patient will need to remain in the hospital, assuming treatment plan goals are met and no additional complications. Post-Hospital Plan: Not yet determined Kiki Dasilva MD May 15, 2017 22:10
[2017-05-15 22:29] VITALS: BP 153/88; PULSE 105; RESP 18; O2SAT 97
--- NOTE | 2017-05-15 22:41 | RADRPT ---
EXAM DATE/TIME: 05/15/2017 22:03 [facility] COMPARISON: No previous studies available for comparison. INDICATIONS : Syncope. MEDICAL HISTORY : Stroke. Hypercholesterolemia. Hypertension. Glasses. Neuropathy. Hyperlipidemia. Gastroesophageal rel ux disease. Cervical cancer. SURGICAL HISTORY : Appendectomy. Cholecystectomy. Arthroscopy. Bilateral cataract removal. Angiogram. Gastric bypass jese kofi. Breast biopsy. Hysterectomy. Oophorectomy. Bladder surgery. Cervical fusion. Left knee replacem ent. ENCOUNTER: Initial ACUITY: 1 day PAIN SCORE: 2/10 LOCATION: Bilateral neck PEAK SYSTOLIC VELOCITIES (cm/sec): ICA/CCA RATIO: Right: 1.6 Left: 1.6 ICA: Right: 116.2 Left: 118.2 CCA: Right: 72.1 Left: 72.8 ECA: Right: 75.4 Left: 78.8 VERTEBRAL: Right: 76.2 antegrade Left: 68.9 antegrade Elevated flow velocities and ICA/CCA ratios have been found to correlate with increased degrees of vessel stenosis, calculated as percentage of diameter relative to a normal segment of distal ICA/CCA FINDINGS: RIGHT CAROTID: No significant stenosis is visualized. The waveforms are within normal limits. LEFT CAROTID: No significant stenosis is visualized. The waveforms are within normal limits. VERTEBRAL ARTERIES: Antegrade flow is seen in both vertebral arteries. MISCELLANEOUS: None. CONCLUSION: No evidence of hemodynamically significant carotid stenosis. Sohan Ortiz MD on May 15, 2017 at 22:38 Board Certified Radiologist. This report was verified electronically.
[2017-05-15] MEDS: traZODone HCL 100 MG TAB PO SCH (23:09)
[2017-05-15 23:24] LABS: BACTERIA, URINE MOD /hpf; BILIRUBIN, URINE NEG (NEG); BLOOD, URINE TRACE (NEG); GLUCOSE,URINE NEG (NEG); HYALINE CAST, URINE 1 /lpf (RARE); KETONE, URINE NEG (NEG); MUCUS URINE FEW /lpf (OCC); NITRITE,URINE POS (NEG); RENAL EPITHELIAL CELLS 1 /hpf; SQUAMOUS EPITHELIAL CELL URINE 4 /hpf (0-5); TRANSITIONAL EPI CELLS, URINE 1 /hpf; URINE COLOR YELLOW (YELLW/STRAW); URINE LEUKOCYTE ESTERASE LARGE (NEG)
[2017-05-16 00:15] VITALS: BP 99/52; PULSE 100; RESP 18; TEMP 97.6; O2SAT 96
[2017-05-16] MEDS: LACTATED RINGER'S 1000 ML IV PRN ×2 (03:54→06:20)
[2017-05-16] MEDS: MORPHINE SULFATE 2 MG/ML INJ IV PUSH PRN ×2 (03:54→09:27)
[2017-05-16] MEDS ORDERED: POVIDONE IODINE 5% (ANTISEPSIS KIT) 4 APPLICATIONS EACH NARE PRN (04:00)
[2017-05-16] MEDS ORDERED: METOPROLOL TARTRATE 25 MG TAB PO PRN (04:00)
[2017-05-16] MEDS ORDERED: SODIUM CHLORID 0.9% 500 ML IV PRN (04:00)
[2017-05-16] MEDS ORDERED: CHLORHEXIDINE GLUCONATE 2 % 1 PACK (2 CLOTHS) TOPICAL PRN (04:00)
[2017-05-16] MEDS ORDERED: INSULIN HUMAN REGULAR 1,000 UNITS/10 ML VIAL SQ PRN (04:00)
[2017-05-16 04:07] VITALS: BP 97/57; PULSE 115; RESP 18; TEMP 97.5; O2SAT 99
[2017-05-16] MEDS: LEVOTHYROXINE SODIUM 88 MCG TAB PO SCH (06:19)
[2017-05-16 08:00] VITALS: BP 115/74; PULSE 110; RESP 18; TEMP 97.6; O2SAT 99
[2017-05-16] MEDS: INSULIN ASPART SUPPLEMENTAL SCALE SQ SCH ×4 (08:00→20:02)
[2017-05-16 08:18] LABS: AUTOMATED NEUTROPHIL # 3.7 TH/MM3 (1.8-7.7); BASOPHIL % 0.9 % (0.0-2.0); EOSINOPHIL # 0.3 TH/MM3 (0-0.4); EOSINOPHIL % 6.3 % (0.0-4.0); LYMPH % 15.7 % (9.0-44.0); LYMPHOCYTE # 0.9 TH/MM3 (1.0-4.8); MEAN CELL VOLUME 96.2 FL (80.0-100.0); MEAN CORPUSCULAR HEMOGLOBIN 32.2 PG (27.0-34.0); MEAN CORPUSCULAR HGB CONC 33.4 % (32.0-36.0); MEAN PLATELET VOLUME 8.3 FL (7.0-11.0); MONO % 10.2 % (0.0-8.0); MONOCYTE # 0.6 TH/MM3 (0-0.9); NEUT % 66.9 % (16.0-70.0); PLATELET COUNT 227 TH/MM3 (150-450); RED BLOOD COUNT 3.12 MIL/MM3 (4.00-5.30); WHITE BLOOD COUNT 5.5 TH/MM3 (4.0-11.0)
--- NOTE | 2017-05-16 08:41 | EKG ---
Date Performed: 05/16/2017 Time Performed: 04:39:34 PTAGE: 66 years EKG: Sinus tachycardia. Poor R wave progression Low QRS voltages in precordial leads Abnormal EC G PREVIOUS TRACING : 11/22/2016 19.28 Compared to previous tracing, heart rate has increased, poo r R wave progression is now evident. DOCTOR: Sajan Mitchell Interpretating Date/Time 05/16/2017 08:39:30
[2017-05-16 08:48] LABS: BICARBONATE 21.5 MEQ/L (21.0-32.0); CALCIUM 8.3 MG/DL (8.5-10.1); CREATININE 1.62 MG/DL (0.50-1.00)
[2017-05-16] MEDS: PANTOPRAZOLE SOD 40 MG DELAYED RELEASE TAB PO SCH (09:00)
[2017-05-16] MEDS: GABAPENTIN 300 MG CAP PO SCH ×3 (09:00→17:08)
[2017-05-16] MEDS ORDERED: SODIUM CHLORIDE 0.9% FLUSH 10 ML FLUSH IV FLUSH SCH (09:00)
[2017-05-16] MEDS: CETIRIZINE HCL 10 MG TAB PO SCH (09:00)
[2017-05-16] MEDS ORDERED: ACETAMINOPHEN 1000 MG/100 ML 100 ML IV ONE (09:17)
[2017-05-16] MEDS ORDERED: HYDROmorphone HCL PF 2 MG/ML VIAL ONE (09:35)
[2017-05-16] MEDS ORDERED: CLINDAMYCIN PHOS 900 MG/6 ML VIAL ONE (09:40)
[2017-05-16] MEDS ORDERED: VANCOMYCIN HCL 1000 MG VIAL ONE (09:40)
[2017-05-16] MEDS ORDERED: BACITRACIN TOP OINT 15 GM TUBE ONE (09:41)
[2017-05-16] MEDS ORDERED: NEOMYCIN/POLYMYXIN 1 ML G.U. IRRIGANT ONE (09:57)
--- NOTE | 2017-05-16 12:58 | PD.CONS ---
cc: Wenceslao Brenner Jr., MD HPI Service Orthopedic Surgeons Consult Requested By Primary Care Physician Lui Jacobson MD Admission Diagnosis left ankle fx Diagnoses: Chief Complaint: Left ankle fracture History of Present Illness 66-year-old female with a past medical history significant for osteogenesis imperfecta, obesity, insulin-dependent diabetes mellitus, hypertension and CKD stage IV presents to the emergency department after suffering a fall earlier today. The patient was reportedly getting in her car when she fell hitting her head on the sidewalk. She is unsure if she lost consciousness or not. She has a history of previous falls without memory of the events. she presents c/o left ankle pain and inability bear weight. -X-ray taken the emergency department reveal displaced left bimalleolar ankle fracture. -Currently is alert, pain localized at left ankle, patient's is 3 out of 10, exacerbated by any range of motion, WB, relieved at rest and with IV pain medicine, pain is dull, nonradiating, dull, not associated with any paresthesia and numbness to the extremity. ROS - General Review of Systems Denies fever or chills Denies blurry vision, otorrhea, rhinorrhea Denies sore throat and cough No chest pain, palpitations, shortness of breath No abdominal pain Denies constipation/diarrhea/nausea/vomiting Denies muscle pain/weakness No rashes PFSH Past Family Social History Past Medical History Osteogenesis imperfecta Insulin-dependent diabetes mellitus Hypertension CKD stage IV Past Surgical History Hysterectomy Left knee replacement Neck fusion Cholecystectomy Appendectomy Reported Medications Reported Meds & Active Scripts Active Hydrocortisone Topical 1% Cream 1 Applic TOPICAL BID Ibuprofen 600 Mg Tab 600 Mg PO Q6H PRN Percocet (Oxycodone-Acetaminophen) 5-325 mg Tab 1 Tab PO Q6H PRN Reported Novolog Mix 70-30 Inj (Insulin Aspart Prota 70%/Aspart 30%) 1,000 Unit/10 Ml Vial 10 Units SQ BID Pantoprazole (Pantoprazole Sodium) 40 Mg Tab 40 Mg PO DAILY Levothyroxine (Levothyroxine Sodium) 88 Mcg Tab 88 Mcg PO DAILY Cetirizine (Cetirizine HCl) 10 Mg Tab 10 Mg PO DAILY Trazodone (Trazodone HCl) 100 Mg Tablet 100 Mg PO HS Gabapentin 600 Mg Tab 600 Mg PO TID Allergies: Coded Allergies: Sulfa (Sulfonamide Antibiotics) (Unverified Allergy, Unknown, 05/15/17) aripiprazole (Unverified Allergy, Unknown, 05/15/17) fentanyl (Unverified Allergy, Unknown, 05/15/17) penicillin G (Unverified Allergy, Unknown, 05/15/17) Family History Father of [place] at age 66. Mother with diabetes mellitus. Social History Occasional alcohol. Denies tobacco, illicit drugs. Past Family Social History Past Medical History Osteogenesis imperfecta Insulin-dependent diabetes mellitus Hypertension CKD stage IV Past Surgical History Hysterectomy Left knee replacement Neck fusion Cholecystectomy Appendectomy Allergies: Coded Allergies: Sulfa (Sulfonamide Antibiotics) (Unverified Allergy, Unknown, 05/15/17) aripiprazole (Unverified Allergy, Unknown, 05/15/17) fentanyl (Unverified Allergy, Unknown, 05/15/17) penicillin G (Unverified Allergy, Unknown, 05/15/17) Active Ordered Medications Current Medications Medications (Trade) Dose Ordered Sig/Beck Route Start Time Stop Time Status Last Admin (NS Flush) 2 ml UNSCH PRN IV FLUSH 05/15/17 21:30 (NS Flush) 2 ml BID IV FLUSH 05/16/17 09:00 05/16/17 09:00 (Tylenol) 650 mg Q4H PRN PO 05/15/17 21:30 (Zofran Inj) 4 mg Q6H PRN IVP 05/15/17 21:30 (Narcan Inj) 0.4 mg UNSCH PRN IV PUSH 05/15/17 21:30 (Milk Of Magnesia Liq) 30 ml Q12H PRN PO 05/15/17 21:30 (Senokot) 17.2 mg Q12H PRN PO 05/15/17 21:30 (Dulcolax Supp) 10 mg DAILY PRN RECTAL 05/15/17 21:30 (D50w (Vial) Inj) 50 ml UNSCH PRN IV PUSH 05/15/17 21:30 (Glucagon Inj) 1 mg UNSCH PRN OTHER 05/15/17 21:30 (NovoLOG SUPPLEMENTAL SCALE) 1 ACHS SLIDING SCALE SQ 05/16/17 08:00 (ZyrTEC) 10 mg DAILY PO 05/16/17 09:00 (Neurontin) 600 mg TID PO 05/16/17 09:00 (Synthroid) 88 mcg DAILY@0600 PO 05/16/17 06:00 05/16/17 06:19 (Protonix) 40 mg DAILY PO 05/16/17 09:00 (Desyrel) 100 mg HS PO 05/15/17 21:45 05/15/17 23:09 (Morphine Inj) 4 mg Q3H PRN IV PUSH 05/15/17 23:30 05/16/17 09:27 Lactated Ringer's 1,000 ml @ 30 mls/hr Q24H PRN IV 05/16/17 04:00 05/19/17 03:59 05/16/17 06:20 Sodium Chloride 500 ml @ 30 mls/hr [id number] PRN IV 05/16/17 04:00 05/19/17 03:59 (Lopressor) 25 mg RELEASE OF INFORMATION CLERK PRN PO 05/16/17 04:00 05/19/17 03:59 (Betadine 5% Antisepsis Kit) 1 applic RELEASE OF INFORMATION CLERK PRN EACH NARE 05/16/17 04:00 05/19/17 03:59 (Chlorhexidine 2% Cloth) 3 pack RELEASE OF INFORMATION CLERK PRN TOPICAL 05/16/17 04:00 05/19/17 03:59 Reported Meds & Active Scripts Active Hydrocortisone Topical 1% Cream 1 Applic TOPICAL BID Ibuprofen 600 Mg Tab 600 Mg PO Q6H PRN Percocet (Oxycodone-Acetaminophen) 5-325 mg Tab 1 Tab PO Q6H PRN Reported Novolog Mix 70-30 Inj (Insulin Aspart Prota 70%/Aspart 30%) 1,000 Unit/10 Ml Vial 10 Units SQ BID Pantoprazole (Pantoprazole Sodium) 40 Mg Tab 40 Mg PO DAILY Levothyroxine (Levothyroxine Sodium) 88 Mcg Tab 88 Mcg PO DAILY Cetirizine (Cetirizine HCl) 10 Mg Tab 10 Mg PO DAILY Trazodone (Trazodone HCl) 100 Mg Tablet 100 Mg PO HS Gabapentin 600 Mg Tab 600 Mg PO TID Family History Father of [place] at age 66. Mother with diabetes mellitus. Social History Occasional alcohol. Denies tobacco, illicit drugs. Physical Exam Vital Signs Vital Signs Date Time Temp Pulse Resp B/P (MAP) Pulse Ox O2 Delivery O2 Flow Rate FiO2 05/16/17 09:32 18 05/16/17 08:00 97.6 110 18 115/74 (88) 99 05/16/17 04:07 97.5 115 18 97/57 (70) 99 05/16/17 00:15 97.6 100 18 99/52 (68) 96 05/15/17 22:31 05/15/17 22:29 105 18 153/88 (109) 97 Room Air 05/15/17 19:48 108 18 118/68 (85) 100 Room Air 05/15/17 17:48 98.4 112 19 142/72 (95) 98 Room Air 05/15/17 17:47 112 19 98 Room Air 05/15/17 17:44 98.4 112 19 142/72 (95) 98 Physical Exam Alert awake and oriented x 3. No acute distress. Head: NC/AT Neck: No pain with any range of motion and neck. Trachea is midline. Pulmonary: Normal respiratory effort. Bilateral upper extremity: No deformities Intact sensation distally in median, ulnar, and radial nerve. Intact motor in anterior interosseous, posterior interosseous, and ulnar nerve. 2+ radial artery pulses. Good cap refill. RIGHT lower extremity: No deformity, grossly Neurovascularly intact, +EHL/FHL. + PT/DP pulses. Supple compartments. Negative Homans sign. LEFT lower extremity: Splint in place. Swelling and deformity and ankle. No open injuries grossly Neurovascularly intact, able to wiggle toes. Good cap refill and palpable pulses. Supple compartments. Negative Homans sign.. Laboratory Laboratory Tests Test 05/15/17 20:20 05/15/17 21:40 05/16/17 07:53 White Blood Count 7.0 5.5 Red Blood Count 3.42 3.12 Hemoglobin 10.6 10.0 Hematocrit 32.9 30.0 Mean Corpuscular Volume 96.2 96.2 Mean Corpuscular Hemoglobin 31.0 32.2 Mean Corpuscular Hemoglobin Concent 32.2 33.4 Red Cell Distribution Width 13.8 14.0 Platelet Count 253 227 Mean Platelet Volume 8.1 8.3 Neutrophils (%) (Auto) 69.7 66.9 Lymphocytes (%) (Auto) 15.0 15.7 Monocytes (%) (Auto) 9.2 10.2 Eosinophils (%) (Auto) 5.3 6.3 Basophils (%) (Auto) 0.8 0.9 Neutrophils # (Auto) 4.9 3.7 Lymphocytes # (Auto) 1.1 0.9 Monocytes # (Auto) 0.6 0.6 Eosinophils # (Auto) 0.4 0.3 Basophils # (Auto) 0.1 0.0 CBC Comment DIFF FINAL DIFF FINAL Differential Comment Prothrombin Time 10.4 Prothromb Time International Ratio 1.0 Activated Partial Thromboplast Time 26.4 Blood Urea Nitrogen 38 34 Creatinine 1.65 1.62 Random Glucose 133 131 Calcium Level 8.3 8.3 Sodium Level 140 139 Potassium Level 4.6 4.6 Chloride Level 110 109 Carbon Dioxide Level 22.5 21.5 Anion Gap 8 9 Estimat Glomerular Filtration Rate 31 32 Urine Color YELLOW Urine Turbidity HAZY Urine pH 5.0 Urine Specific [place] 1.015 Urine Protein NEG Urine Glucose (UA) NEG Urine Ketones NEG Urine Occult Blood TRACE Urine Nitrite POS Urine Bilirubin NEG Urine Urobilinogen LESS THAN 2.0 Urine Leukocyte Esterase LARGE Urine RBC 4 Urine WBC 18 Urine Squamous Epithelial Cells 4 Urine Transitional Epithelial Cells 1 Urine Renal Epithelial Cells 1 Urine Bacteria MOD Urine Hyaline Casts 1 Urine Mucus FEW Microscopic Urinalysis Comment CULTURE INDICATED Date/Time Source Procedure Growth Status 05/15/17 21:40 Urine Clean Catch Urine Culture Pending Received Result Diagram: 05/16/17 0753 05/16/17 0753 Imaging Last 72 hours Impressions Ankle X-Ray 05/16/17 0000 Signed Impressions: Service Date/Time: Tuesday, May 16, 2017 11:57 - CONCLUSION: Anatomic alignment. Lupillo Arzate MD FACR Head CT 05/15/17 1853 Signed Impressions: Service Date/Time: Monday, May 15, 2017 19:19 - CONCLUSION: No acute intracranial findings. Sohan Ortiz MD Ankle X-Ray 05/15/17 1739 Signed Impressions: Service Date/Time: Monday, May 15, 2017 17:47 - CONCLUSION: Fractures of the medial malleolus and distal fibula shaft. Sohan Ortiz MD Carotid Artery Ultrasound 05/15/17 0000 Signed Impressions: Service Date/Time: [place], May 15, 2017 22:03 - CONCLUSION: No evidence of hemodynamically significant carotid stenosis. Sohan Ortiz MD Assessment & Plan Assessment and Plan 66-year-old female with a past medical history significant for osteogenesis imperfecta, obesity, insulin-dependent diabetes mellitus, hypertension and CKD stage IV presents to the emergency department after suffering a fall earlier today. The patient was reportedly getting in her car when she fell hitting her head on the sidewalk and injuring her left ankle. She is unsure if she lost consciousness or not. She has a history of previous falls without memory of the events. she presents c/o left ankle pain and inability bear weight. X-ray taken the emergency department reveal displaced left bimalleolar ankle fracture. Her injuries in unstable. I recommended open reduction internal fixation. I discussed my treatment plans with the patient, as well as risks, benefits and alternatives of surgical Intervention versus nonoperative treatment. In this case, the risks of operative intervention involves bleeding, infection, risks of damage to neurovascular structures, the risk of needing further surgery, posttraumatic arthritis and the risks involved with complication from anesthesia. We will proceed with the above procedure. The patient accepts these risks; understands and agrees with my recommendations. I also discussed my proposed postoperative care and follow-up plan. All questions were answered. Plan for OR []. Nothing by mouth []. Patient consented. Thanks for the consult, thanks for allowing me to participate in this patient's medical care. Wenceslao Brenner Jr., MD May 16, 2017 12:58
--- NOTE | 2017-05-16 12:58 | PD.OP ---
cc: Wenceslao Brenner Jr., MD Operative Report Date of Surgery: May 16, 2017 Preoperative Diagnosis: Left bimalleolar ankle fracture Postoperative Diagnosis: Same Procedure: Left bimalleolar ankle open reduction internal fixation Anesthesia: Gen. Surgeon: Wenceslao Brenner Concentrator Operator(s): Staff Resident Surgeon: None Operation and Findings: Informed consent obtained, operative site was marked. The left foot and ankle were seen and evaluated this morning. Soft tissue swelling had significantly improved and appeared to be ready for surgery. sHe was brought to the operating room and placed on the operating room table. sHe was given intravenous sedation , general endotracheal anesthesia. sHe received IV antibiotics and was placed in the lateral decubitus position. Foot and leg were prepped with alcohol, followed by Hibiclens, draped in usual sterile fashion. A time out procedure was preformed. At this point the leg was elevated. The procedure began with a five inch incision over the lateral aspect fibula. A full thickness flap was carefully elevated. The fracture was identified , periosteum was elevated atthe fracture site. Attention was now turned to expose the distal end of the fibula and as much proximal as necessary to allow reduction and plate position. Attention was turned to the syndesmosis and under direct visualization the syndesmotic area was cleaned of any debris and irrigated. Using pointed reduction clamps the fibula was reduced and reduction was maintained using a bone clamp. Reduction was confirmed under fluoroscopy. The quality of the bone was poor and there was significant comminution at the fracture site. A lateral fibula locking plate was selected with locking screws distally. An anterior medial incision was made at the level of the medial malleolus. A full-thickness flap was carefully elevated. The medial malleolus piece was very small and essentially an avulsion of the medial and deltoid ligaments from the medial malleolus. The fragment was too small for screw fixation. #2 fiberwire was used to repair the avulse fragment to the medial malleolus through 2 transosseous tunnels. Using fluoroscopy, the syndesmosis was stressed in the mortise view with the cotton test and external rotation stress test. The syndesmosis was found to be stable. Multiplanar fluoroscopy confirmed well-aligned fracture. Final fluoroscopy was used to confirm a well-aligned fracture with well-placed hardware. Incision was thoroughly irrigated. Tourniquet was released. Hemostasis was confirmed. Fascia layer was closed 0 Vicryl, the skin and subcutaneous tissue closed with 2 -0 nylon, in vertical mattress fashion. Sterile dressings were applied the patient was placed into a well molded padded splint. The patient was transferred to the Recovery Room in stable condition. POSTP-OP PLAN OF ACTIVITY Antibiotics: vancomycin Antiocoagulation: Lovenox,dc with asa Weight bearing status: NWB Dressing: splint Dispo: expected discharge when stable and safe with dc SW for dc planning rx in chart Wenceslao Brenner Jr., MD May 16, 2017 12:58
[2017-05-16] MEDS ORDERED: PERC5TAB12 PO (13:00)
[2017-05-16] MEDS ORDERED: Post-op Orders (for Pharmacy) XX ONE (13:00)
[2017-05-16] MEDS ORDERED: ZOLPIDEM TARTRATE 5 MG TAB PO PRN (13:00)
[2017-05-16] MEDS ORDERED: MAGNESIUM HYDROXIDE SUSP 30 ML CUP PO PRN (13:00)
[2017-05-16] MEDS ORDERED: ASPI-183 PO (13:00)
[2017-05-16] MEDS ORDERED: SENNOSIDES 8.6 MG TAB PO PRN (13:00)
[2017-05-16] MEDS: KETOROLAC TROMETHAMINE 30 MG/ML (IVP) VIAL IVP SCH ×2 (13:00→18:14)
[2017-05-16] MEDS ORDERED: BISACODYL 10 MG SUPP RECTAL PRN (13:00)
[2017-05-16] MEDS ORDERED: PROMETHAZINE HCL 25 MG TAB PO PRN (13:00)
[2017-05-16] MEDS ORDERED: LACTULOSE SYRUP 20 GM/30 ML CUP PO PRN (13:00)
[2017-05-16] MEDS ORDERED: SODIUM CHLORIDE 0.9% FLUSH 10 ML FLUSH IV FLUSH PRN (13:00)
[2017-05-16] MEDS: oxyCODONE/ACETAMINOPHEN 5 MG/325 MG TAB PO PRN ×3 (13:59→22:32)
[2017-05-16] MEDS ORDERED: DO NOT ADM ANY ANTICOAGULANT DRUGS PRN (14:00)
--- NOTE | 2017-05-16 14:26 | RADRPT ---
EXAM DATE/TIME: 05/16/2017 11:57 [facility] COMPARISON: No previous studies available for comparison. INDICATIONS : ORIF Left ankle. Ankle pain. MEDICAL HISTORY : Osteoarthritis. Fibromyalgia. Osteogenic imperfecta. SURGICAL HISTORY : Left knee surgery, Bilateral arthroscopy. ENCOUNTER: Subsequent ACUITY: 2 days PAIN SCORE: 10/10 LOCATION: Left ankle FINDINGS: Plate with screws is seen bridging the fracture of the lateral malleolus. Alignment anatomic. CONCLUSION: Anatomic alignment. Lupillo Arzate MD FACR on May 16, 2017 at 14:24 Board Certified Radiologist. This report was verified electronically.
[2017-05-16 16:00] VITALS: BP 95/75; PULSE 95; RESP 18; TEMP 98; O2SAT 95
[2017-05-16 20:00] VITALS: BP 149/71; PULSE 91; RESP 18; TEMP 97.3; O2SAT 96
[2017-05-16] MEDS: SODIUM CHLORIDE 0.9% FLUSH 10 ML FLUSH IV FLUSH SCH (20:02)
[2017-05-16] MEDS: DOCUSATE SODIUM 50 MG/SENNA 8.6 MG TAB PO SCH (20:03)
[2017-05-16] MEDS: traZODone HCL 100 MG TAB PO SCH (20:03)
[2017-05-17] VITALS (9 sets, daily range): BP systolic 84–136; BP diastolic 41–67; PULSE 94–108; RESP 16–18; TEMP 96.8–99.5; O2SAT 95–100
[2017-05-17] MEDS: VANCOMYCIN INJ 1,000 MG in SODIUM CHLOR 0.9% 250 ML INJ 250 ML IV SCH ×2 (00:51→14:07)
[2017-05-17] MEDS: KETOROLAC TROMETHAMINE 30 MG/ML (IVP) VIAL IVP SCH ×4 (00:51→19:22)
[2017-05-17] MEDS: ENOXAPARIN SODIUM 30 MG/0.3 ML SYRINGE SQ SCH ×2 (00:51→14:12)
[2017-05-17] MEDS: CIPROFLOXACIN 400 MG PREMIX 200 ML IV SCH ×2 (00:51→14:07)
[2017-05-17] MEDS ORDERED: LACTATED RINGER'S 1000 ML INJ 1,000 ML IV SCH (04:15)
[2017-05-17] MEDS: LEVOTHYROXINE SODIUM 88 MCG TAB PO SCH (05:47)
[2017-05-17] MEDS: oxyCODONE/ACETAMINOPHEN 5 MG/325 MG TAB PO PRN ×2 (05:48→17:35)
--- NOTE | 2017-05-17 07:38 | PD.ORT.PN ---
Subjective Subjective Remarks no issues. pain controlled Objective Vitals Vital Signs Date Time Temp Pulse Resp B/P (MAP) Pulse Ox O2 Delivery O2 Flow Rate FiO2 05/17/17 05:30 97 136/66 (89) 05/17/17 03:57 96.8 100 16 86/54 (65) 97 05/17/17 00:15 95 21 05/17/17 00:00 98.1 95 17 121/67 (85) 95 05/16/17 20:00 97.3 91 18 149/71 (97) 96 05/16/17 16:00 98.0 95 18 95/75 (82) 95 05/16/17 14:59 18 05/16/17 13:15 98.3 92 14 160/86 (110) 97 Nasal Cannula 2 05/16/17 13:00 94 14 172/97 (122) 98 Nasal Cannula 3 05/16/17 12:45 83 14 155/83 (107) 97 Nasal Cannula 3 05/16/17 12:39 98.3 81 14 140/71 (94) 95 Nasal Cannula 4 05/16/17 09:32 18 05/16/17 08:00 97.6 110 18 115/74 (88) 99 I/O 05/16/17 05/16/17 05/16/17 05/17/17 05/17/17 05/17/17 07:00 15:00 23:00 07:00 15:00 23:00 Intake Total 0 ml 1480 ml 720 ml 690 ml Output Total 25 ml Balance 0 ml 1455 ml 720 ml 690 ml Intake Oral 0 ml 480 ml 720 ml 240 ml IV Total 450 ml Other 1000 ml Output Estimated Blood Loss 25 ml # Voids 1 1 1 # Bowel Movements 0 Result Diagram: 05/16/17 0753 05/16/17 0753 Objective Remarks NAD LLE: nvi. splint in place and clean. SILT distally. Assessment & Plan Assessment and Plan POD1- left ankle ORIF doing well vanc NWB LLE lovenox, asa no dressing changes dc planning likely SNF rx in chart Wenceslao Brenner Jr., MD May 17, 2017 07:38
[2017-05-17] MEDS: INSULIN ASPART SUPPLEMENTAL SCALE SQ SCH ×4 (08:00→20:24)
[2017-05-17] MEDS: SODIUM CHLORIDE 0.9% FLUSH 10 ML FLUSH IV FLUSH SCH ×2 (09:00→20:16)
[2017-05-17] MEDS: PANTOPRAZOLE SOD 40 MG DELAYED RELEASE TAB PO SCH (09:01)
[2017-05-17] MEDS: CETIRIZINE HCL 10 MG TAB PO SCH (09:01)
[2017-05-17] MEDS: DOCUSATE SODIUM 50 MG/SENNA 8.6 MG TAB PO SCH ×2 (09:01→20:24)
[2017-05-17] MEDS: GABAPENTIN 300 MG CAP PO SCH ×3 (09:02→17:31)
[2017-05-17] MEDS ORDERED: SODIUM CHLOR 0.9% 1000 ML INJ 1,000 ML IV ONE (10:30)
[2017-05-17 11:45] LABS: AUTOMATED NEUTROPHIL # 4.7 TH/MM3 (1.8-7.7); BASOPHIL % 0.4 % (0.0-2.0); EOSINOPHIL # 0.3 TH/MM3 (0-0.4); EOSINOPHIL % 4.1 % (0.0-4.0); HEMOGLOBIN 9.5 GM/DL (11.6-15.3); LYMPH % 11.5 % (9.0-44.0); LYMPHOCYTE # 0.7 TH/MM3 (1.0-4.8); MEAN CELL VOLUME 98.3 FL (80.0-100.0); MEAN CORPUSCULAR HEMOGLOBIN 32.4 PG (27.0-34.0); MEAN CORPUSCULAR HGB CONC 32.9 % (32.0-36.0); MEAN PLATELET VOLUME 8.8 FL (7.0-11.0); MONO % 7.9 % (0.0-8.0); MONOCYTE # 0.5 TH/MM3 (0-0.9); NEUT % 76.1 % (16.0-70.0); PLATELET COUNT 212 TH/MM3 (150-450); RED BLOOD COUNT 2.95 MIL/MM3 (4.00-5.30); RED CELL DISTRIBUTION WIDTH 14.2 % (11.6-17.2); WHITE BLOOD COUNT 6.2 TH/MM3 (4.0-11.0)
--- NOTE | 2017-05-17 13:15 | HHI.PR ---
Subjective Remarks Patient seen and evaluated today. Blood pressure has been hypotensive 84/47. This is responded well to IV hydration. Overnight she did have a urinalysis was abnormal and did show Escherichia coli. Patient is started on ciprofloxacin. She feels a bit better although she was dizzy earlier Objective Vitals Vital Signs Date Time Temp Pulse Resp B/P (MAP) Pulse Ox O2 Delivery O2 Flow Rate FiO2 05/17/17 12:00 96.8 94 18 117/58 (77) 100 05/17/17 08:20 97 Nasal Cannula 2.00 05/17/17 08:00 96.9 98 18 84/47 (59) 97 05/17/17 05:30 97 136/66 (89) 05/17/17 03:57 96.8 100 16 86/54 (65) 97 05/17/17 00:15 95 21 05/17/17 00:00 98.1 95 17 121/67 (85) 95 05/16/17 20:00 97.3 91 18 149/71 (97) 96 05/16/17 16:00 98.0 95 18 95/75 (82) 95 05/16/17 14:59 18 05/16/17 13:15 98.3 92 14 160/86 (110) 97 Nasal Cannula 2 I/O 05/16/17 05/16/17 05/16/17 05/17/17 05/17/17 05/17/17 07:00 15:00 23:00 07:00 15:00 23:00 Intake Total 0 ml 1480 ml 720 ml 690 ml Output Total 25 ml Balance 0 ml 1455 ml 720 ml 690 ml Intake Oral 0 ml 480 ml 720 ml 240 ml IV Total 450 ml Other 1000 ml Output Estimated Blood Loss 25 ml # Voids 1 1 1 # Bowel Movements 0 Result Diagram: 05/17/17 1104 05/16/17 0753 Objective Remarks GENERAL: This is a well-nourished, well-developed patient, in no apparent distress. CARDIOVASCULAR: Regular rate and rhythm without murmurs, gallops, or rubs. RESPIRATORY: Clear to auscultation. Breath sounds equal bilaterally. No wheezes , rales, or rhonchi. GASTROINTESTINAL: Abdomen soft, non-tender, nondistended. Normal active bowel sounds MUSCULOSKELETAL: Ankle dressed, other 3 Extremities without clubbing, cyanosis, or edema. NEURO: Alert & Oriented x4 to person, place, time, situation. Moves all ext x4 A/P Problem List: (1) Hypotension ICD Code: I95.9 - Hypotension, unspecified Plan: Etiology unclear, has responded to IV fluids Treat urinary tract infection lovenox (2) UTI (urinary tract infection) ICD Code: N39.0 - Urinary tract infection, site not specified Plan: Positive for Escherichia coli, continue ciprofloxacin (3) Closed left ankle fracture ICD Code: S82.892A - Other fracture of left lower leg, initial encounter for closed fracture Status: Acute Plan: Continue postop management as per orthopedic, postop day 1 (4) Osteogenesis imperfecta ICD Code: Q78.0 - Osteogenesis imperfecta Plan: With a history of multiple fractures, recent left-sided rib fractures after fall and alkaline a right sided pain similar to previous rib fractures, patient is requested follow-up with x-rays to fracture Problem Qualifiers (1) Closed left ankle fracture: Qualified Codes: S82.892A - Other fracture of left lower leg, initial encounter for closed fracture Marisa Ledesma MD May 17, 2017 13:15
[2017-05-17] MEDS: traZODone HCL 100 MG TAB PO SCH (20:24)
[2017-05-17] MEDS: MULTIVITAMINS/MINERALS THERAPEUTIC TAB PO SCH (20:24)
--- NOTE | 2017-05-17 20:33 | ECHRPT ---
Indication: syncope CONCLUSIONS Normal left ventricular size. Wall thickness is normal. The left ventricular systolic function is normal with an estimated ejection fraction of 55%. Mild aortic valve regurgitation. BP: 172 / 97 HR: 110 Rhythm: MEASUREMENTS (Male / Female) Normal Values Technical Quality:Good 2D ECHO LV Diastolic Diameter PLAX 4.0 cm 4.2 - 5.9 / 3.9 - 5.3 cm LV Systolic Diameter PLAX 3.1 cm IVS Diastolic Thickness 0.9 cm 0.6 - 1.0 / 0.6 - 0.9 cm LVPW Diastolic Thickness 0.6 cm 0.6 - 1.0 / 0.6 - 0.9 cm LV Relative Wall Thickness 0.4 RV Internal Dim ED PLAX 1.9 cm LA Systolic Diameter LX 3.2 cm 3.0 - 4.0 / 2.7 - 3.8 cm M-MODE Aortic Root Diameter MM 3.3 cm AV Cusp Separation MM 2.0 cm DOPPLER Mitral E Point Velocity 64.7 cm/s Mitral A Point Velocity 105.0 cm/s Mitral E to A Ratio 0.6 TR Peak Velocity 204.0 cm/s TR Peak Gradient 16.6 mmHg FINDINGS LEFT VENTRICLE Normal left ventricular size. Wall thickness is normal. The left ventricular systolic function is normal with an estimated ejection fraction of 55%. RIGHT VENTRICLE Normal right ventricular size and systolic function. LEFT ATRIUM The left atrial size is normal. RIGHT ATRIUM The right atrial size is normal. ATRIAL SEPTUM Normal atrial septal thickness without atrial level shunting by limited color doppler interrogation. AORTA The aortic root and proximal ascending aorta are normal in size on limited imaging. MITRAL VALVE Structurally normal mitral valve. No mitral valve stenosis or regurgitation. AORTIC VALVE Mild aortic valve regurgitation. TRICUSPID VALVE Structurally normal tricuspid valve. No tricuspid valve stenosis or regurgitation. PULMONARY VALVE Trivial pulmonary valve regurgitation. VESSELS The inferior vena cava is normal in size. PERICARDIUM No pericardial effusion. Dhaval Hernandez MD, FACC (Electronically Signed) Final Date:17 May 2017 20:33
--- NOTE | 2017-05-17 21:24 | RADRPT ---
EXAM DATE/TIME: 05/17/2017 21:00 [facility] COMPARISON: CT THORAX W/O CONTRAST, May 11, 2017, 21:38. INDICATIONS : Bilateral rib pain post fall. MEDICAL HISTORY : Stroke. Hypertension Left rib fracture. SURGICAL HISTORY : Appendectomy. Cholecystectomy. Gastric bypass surgery. Breast biopsy. Hysterectomy. Oophorectomy. ENCOUNTER: Initial ACUITY: 4 - 6 days PAIN SCORE: 6/10 LOCATION: Bilateral chest FINDINGS: Nonacute and substantially healed appearing fractures are seen, right fifth and sixth, left fifth thr ough eighth. I don't see an acute cortical break or trabecular disruption. No pneumothorax seen. No e vidence of pleural effusion/hemothorax. CONCLUSION: There are old bilateral rib fractures. No acute fractures are demonstrated. Alin Willis MD on May 17, 2017 at 21:21 Board Certified Radiologist. This report was verified electronically.
[2017-05-18] VITALS (8 sets, daily range): BP systolic 89–141; BP diastolic 52–68; PULSE 96–105; RESP 16–19; TEMP 97.8–99.6; O2SAT 94–100
[2017-05-18] MEDS: ENOXAPARIN SODIUM 30 MG/0.3 ML SYRINGE SQ SCH ×2 (01:00→13:09)
[2017-05-18] MEDS: KETOROLAC TROMETHAMINE 30 MG/ML (IVP) VIAL IVP SCH ×2 (01:00→05:33)
[2017-05-18] MEDS: oxyCODONE/ACETAMINOPHEN 5 MG/325 MG TAB PO PRN ×2 (05:33→21:25)
[2017-05-18] MEDS: LEVOTHYROXINE SODIUM 88 MCG TAB PO SCH (05:33)
[2017-05-18] MEDS ORDERED: CIPROFLOXACIN 400 MG PREMIX 200 ML IV SCH (08:00)
[2017-05-18] MEDS: CETIRIZINE HCL 10 MG TAB PO SCH (08:39)
[2017-05-18] MEDS: PANTOPRAZOLE SOD 40 MG DELAYED RELEASE TAB PO SCH (08:39)
[2017-05-18] MEDS: DOCUSATE SODIUM 50 MG/SENNA 8.6 MG TAB PO SCH ×2 (08:39→21:24)
[2017-05-18] MEDS: GABAPENTIN 300 MG CAP PO SCH ×3 (08:39→16:57)
[2017-05-18] MEDS: MULTIVITAMINS/MINERALS THERAPEUTIC TAB PO SCH ×2 (08:39→21:25)
[2017-05-18] MEDS: SODIUM CHLORIDE 0.9% FLUSH 10 ML FLUSH IV FLUSH SCH ×2 (08:40→21:28)
[2017-05-18] MEDS: INSULIN ASPART SUPPLEMENTAL SCALE SQ SCH ×4 (08:40→21:25)
--- NOTE | 2017-05-18 11:19 | HHI.PR ---
Subjective Remarks Patient doing well today. Seen in follow-up for fracture. For urinary tract infection however Escherichia coli is resistant to Cipro. No new events. Patient discharge plans continue Objective Vitals Vital Signs Date Time Temp Pulse Resp B/P (MAP) Pulse Ox O2 Delivery O2 Flow Rate FiO2 05/18/17 09:39 96 05/18/17 07:45 97.9 101 19 132/64 (86) 96 05/18/17 04:49 98.0 99 16 110/52 (71) 95 05/18/17 00:53 99.5 102 16 89/53 (65) 96 05/17/17 21:47 99.5 108 18 108/55 (72) 97 05/17/17 16:00 98.5 16 112/41 (64) 96 05/17/17 15:08 18 05/17/17 12:00 96.8 94 18 117/58 (77) 100 I/O 05/17/17 05/17/17 05/17/17 05/18/17 05/18/17 05/18/17 07:00 15:00 23:00 07:00 15:00 23:00 Intake Total 690 ml 480 ml 1000 ml Balance 690 ml 480 ml 1000 ml Intake Oral 240 ml 480 ml IV Total 450 ml 1000 ml # Voids 1 3 4 1 # Bowel Movements 0 Result Diagram: 05/17/17 1104 05/16/17 0753 Objective Remarks GENERAL: This is a well-nourished, well-developed patient, in no apparent distress. CARDIOVASCULAR: Regular rate and rhythm without murmurs, gallops, or rubs. RESPIRATORY: Clear to auscultation. Breath sounds equal bilaterally. No wheezes , rales, or rhonchi. GASTROINTESTINAL: Abdomen soft, non-tender, nondistended. Normal active bowel sounds MUSCULOSKELETAL: Ankle dressed, other 3 Extremities without clubbing, cyanosis, or edema. NEURO: Alert & Oriented x4 to person, place, time, situation. Moves all ext x4 A/P Problem List: (1) Hypotension ICD Code: I95.9 - Hypotension, unspecified Plan: Resolved, continue Bactrim for UTI, Escherichia coli (2) UTI (urinary tract infection) ICD Code: N39.0 - Urinary tract infection, site not specified Plan: Continue treatment with Bactrim (3) Closed left ankle fracture ICD Code: S82.892A - Other fracture of left lower leg, initial encounter for closed fracture Status: Acute Plan: Continue postop management as per orthopedic, postop day 2 (4) Osteogenesis imperfecta ICD Code: Q78.0 - Osteogenesis imperfecta Plan: Follow-up rib images do show old fractures Continue pain management Incentive spirometry Discharge Planning Likely discharge to [facility] facility when cleared by orthopedic Problem Qualifiers (1) Closed left ankle fracture: Qualified Codes: S82.892A - Other fracture of left lower leg, initial encounter for closed fracture Marisa Ledesma MD May 18, 2017 11:19
[2017-05-18] MEDS ORDERED: SULFAMETHOXAZOLE-TRIMETHOPRIM DS 800-160 MG TAB PO SCH (11:30)
--- NOTE | 2017-05-18 12:58 | PD.ORT.PN ---
Subjective Subjective Remarks no issues. pain controlled Objective Vitals Vital Signs Date Time Temp Pulse Resp B/P (MAP) Pulse Ox O2 Delivery O2 Flow Rate FiO2 05/18/17 11:29 97.8 96 19 117/54 (75) 100 05/18/17 09:39 96 05/18/17 07:45 97.9 101 19 132/64 (86) 96 05/18/17 04:49 98.0 99 16 110/52 (71) 95 05/18/17 00:53 99.5 102 16 89/53 (65) 96 05/17/17 21:47 99.5 108 18 108/55 (72) 97 05/17/17 16:00 98.5 16 112/41 (64) 96 05/17/17 15:08 18 I/O 05/17/17 05/17/17 05/17/17 05/18/17 05/18/17 05/18/17 07:00 15:00 23:00 07:00 15:00 23:00 Intake Total 690 ml 480 ml 1000 ml Balance 690 ml 480 ml 1000 ml Intake Oral 240 ml 480 ml IV Total 450 ml 1000 ml # Voids 1 3 4 1 # Bowel Movements 0 Result Diagram: 05/17/17 1104 05/16/17 0753 Objective Remarks NAD LLE: nvi. splint in place and clean. SILT distally. Assessment & Plan Assessment and Plan POD2- left ankle ORIF doing well vanc NWB LLE lovenox, asa no dressing changes dc planning likely SNF rx in chart Wenceslao Brenner Jr., MD May 18, 2017 12:58
[2017-05-18] MEDS: NITROFURANTOIN MONOHYD MACROCR 100 MG CAP PO SCH ×2 (15:33→16:54)
[2017-05-18] MEDS: traZODone HCL 100 MG TAB PO SCH (21:25)
[2017-05-19 00:42] VITALS: BP 120/59; PULSE 107; RESP 19; TEMP 99; O2SAT 92
[2017-05-19] MEDS: ENOXAPARIN SODIUM 30 MG/0.3 ML SYRINGE SQ SCH ×2 (01:34→12:45)
[2017-05-19 03:55] VITALS: TEMP 99
[2017-05-19] MEDS: LEVOTHYROXINE SODIUM 88 MCG TAB PO SCH (05:45)
[2017-05-19 08:00] VITALS: BP 117/95; PULSE 107; RESP 18; TEMP 99; O2SAT 95
[2017-05-19] MEDS: INSULIN ASPART SUPPLEMENTAL SCALE SQ SCH ×2 (08:00→12:41)
[2017-05-19] MEDS: oxyCODONE/ACETAMINOPHEN 5 MG/325 MG TAB PO PRN ×2 (08:43→12:42)
[2017-05-19] MEDS: DOCUSATE SODIUM 50 MG/SENNA 8.6 MG TAB PO SCH (08:44)
[2017-05-19] MEDS: GABAPENTIN 300 MG CAP PO SCH ×2 (08:44→12:40)
[2017-05-19] MEDS: PANTOPRAZOLE SOD 40 MG DELAYED RELEASE TAB PO SCH (08:45)
[2017-05-19] MEDS: CETIRIZINE HCL 10 MG TAB PO SCH (08:45)
[2017-05-19] MEDS: NITROFURANTOIN MONOHYD MACROCR 100 MG CAP PO SCH (08:45)
[2017-05-19] MEDS: MULTIVITAMINS/MINERALS THERAPEUTIC TAB PO SCH (08:45)
--- NOTE | 2017-05-19 10:07 | HHI.DCPOC ---
Discharge Care Plan Diagnosis: (1) Hypotension (2) Dehydration (3) Closed left ankle fracture (4) Osteogenesis imperfecta Goals to Promote Your Health * To prevent worsening of your condition and complications * To maintain your health at the optimal level Directions to Meet Your Goals Take your medications as prescribed Follow your dietary instruction Follow activity as directed Keep your appointments as scheduled Take your immunizations and boosters as scheduled If your symptoms worsen call your PCP, if no PCP go to Urgent Care Center or Emergency Room Smoking is Dangerous to Your Health. Avoid second hand smoke Call the 24-hour hour crisis hotline for domestic abuse at Marisa Leedsma MD May 19, 2017 10:07
--- NOTE | 2017-05-19 10:12 | HHI.DS ---
Discharge Summary Admission Date May 15, 2017 at 21:27 Discharge Date: May 19, 2017 Admitting Diagnosis left ankle fx (1) Hypotension ICD Code: I95.9 - Hypotension, unspecified (2) UTI (urinary tract infection) ICD Code: N39.0 - Urinary tract infection, site not specified (3) Closed left ankle fracture ICD Code: S82.892A - Other fracture of left lower leg, initial encounter for closed fracture Status: Acute (4) Osteogenesis imperfecta ICD Code: Q78.0 - Osteogenesis imperfecta Procedures ORIF L ankle Brief History - From Admission 66-year-old female with a past medical history significant for osteogenesis imperfecta, insulin-dependent diabetes mellitus, hypertension and CKD stage IV presents to the emergency department after suffering a fall earlier today. The patient was reportedly getting in her car when she fell hitting her head on the sidewalk. She is unsure if she lost consciousness or not. She has a history of previous falls without memory of the events. She states she would just " wake up on the ground." Head CT negative. Left ankle x-ray showed fractures of the medial malleolus and distal fibula shaft. CBC/BMP: 05/17/17 1104 05/16/17 0753 Significant Findings Laboratory Tests Test 05/17/17 11:04 Red Blood Count 2.95 MIL/MM3 (4.00-5.30) Hemoglobin 9.5 GM/DL (11.6-15.3) Hematocrit 29.0 % (35.0-46.0) Neutrophils (%) (Auto) 76.1 % (16.0-70.0) Eosinophils (%) (Auto) 4.1 % (0.0-4.0) Lymphocytes # (Auto) 0.7 TH/MM3 (1.0-4.8) Imaging Last Impressions Ribs X-Ray 05/17/17 0000 Signed Impressions: Service Date/Time: Wednesday, May 17, 2017 21:00 - CONCLUSION: There are old bilateral rib fractures. No acute fractures are demonstrated. Alin Willis MD Ankle X-Ray 05/16/17 0000 Signed Impressions: Service Date/Time: Tuesday, May 16, 2017 11:57 - CONCLUSION: Anatomic alignment. Lupillo Arzate MD FACR Head CT 05/15/17 1853 Signed Impressions: Service Date/Time: Monday, May 15, 2017 19:19 - CONCLUSION: No acute intracranial findings. Sohan Ortiz MD Carotid Artery Ultrasound 05/15/17 0000 Signed Impressions: Service Date/Time: Monday, May 15, 2017 22:03 - CONCLUSION: No evidence of hemodynamically significant carotid stenosis. Sohan Ortiz MD PE at Discharge GENERAL: This is a well-nourished, well-developed patient, in no apparent distress. CARDIOVASCULAR: Regular rate and rhythm without murmurs, gallops, or rubs. RESPIRATORY: Clear to auscultation. Breath sounds equal bilaterally. No wheezes , rales, or rhonchi. GASTROINTESTINAL: Abdomen soft, non-tender, nondistended. Normal active bowel sounds MUSCULOSKELETAL: Ankle dressed, other 3 Extremities without clubbing, cyanosis, or edema. NEURO: Alert & Oriented x4 to person, place, time, situation. Moves all ext x4 Pt update on day of discharge Patient doing well, No new complaints Complaining of rib pain Discharge plans discussed with patient and nursing team Hospital Course Patient is a 66-year-old female with osteogenesis imperfecta. She had an ankle fracture and had ORIF done. She did well. She has not had any new issues other than bone pain specifically rib pain which there are old rib fractures. She did have urinary tract infection which was treated with nitrofurantoin and due to sensitivities and allergy profile. She received physical therapy and occupational therapy Pt Condition on Discharge: Good Discharge Disposition: Discharge to SNF Discharge Time: > 30 minutes Discharge Instructions DIET: Follow Instructions for: As Tolerated, No Restrictions Activities you can perform: Regular-No Restrictions Follow up Referrals: Orthopedics - 2 Weeks New Medications: Aspirin (Aspirin) 325 Mg Tab 325 MG PO DAILY for Blood Clot Prevention, #15 TAB 0 Refills Oxycodone-Acetaminophen (Percocet) 5-325 mg Tab 1 TAB PO Q4H PRN for PAIN, #60 TAB 0 Refills Continued Medications: Cetirizine (Cetirizine) 10 Mg Tab 10 MG PO DAILY for Allergies, TAB 0 Refills Gabapentin (Gabapentin) 600 Mg Tab 600 MG PO TID, #90 TAB 0 Refills Hydrocortisone Topical (Hydrocortisone Topical) 1% Cream 1 APPLIC TOPICAL BID for Rash/Inflammation, #30 GM 2 Refills Insulin Aspart Protam-Asp 70-30 Inj (Novolog Mix 70-30 Inj) 1,000 Unit/10 Ml Vial 10 UNITS SQ BID for Blood Sugar Management, #10 ML 0 Refills Levothyroxine (Levothyroxine) 88 Mcg Tab 88 MCG PO DAILY for Thyroid, #30 TAB 0 Refills Oxycodone-Acetaminophen (Percocet) 5-325 mg Tab 1 TAB PO Q6H PRN for PAIN, #15 TAB 0 Refills Pantoprazole (Pantoprazole) 40 Mg Tab 40 MG PO DAILY for Reflux, #30 TAB 0 Refills Trazodone (Trazodone) 100 Mg Tablet 100 MG PO HS for Control Depression, #30 TAB 0 Refills Discontinued Medications: Ibuprofen (Ibuprofen) 600 Mg Tab 600 MG PO Q6H PRN for PAIN, #20 TAB 0 Refills Marisa Ledesma MD May 19, 2017 10:12
[2017-05-19] MEDS ORDERED: ENOX30P SQ (10:15)
[2017-05-19] MEDS ORDERED: CEFU1TAB20 PO (11:29)
[2017-05-19 12:00] VITALS: BP 124/72; PULSE 98; RESP 18; TEMP 98; O2SAT 95
[2017-05-19] MEDS: SODIUM CHLORIDE 0.9% FLUSH 10 ML FLUSH IV FLUSH SCH (12:46)
[2017-05-19] MEDS ORDERED: CEFUROXIME AXETIL 500 MG TAB PO SCH (13:30)
== END 2017-05-19 14:46 | DRG 493 ==
LOC: NEPD 17:34 → NEDA 21:27 → N06A 22:36
PROVIDERS: ADMIT Hospitalist; ATTEND Hospitalist
PROC: 0QHH04Z Insertion of Internal Fixation Device into Left Tibia, Open Approach (ICD-10-PCS; 2017-05-16)
PROC: 0QSK04Z Reposition Left Fibula with Internal Fixation Device, Open Approach (ICD-10-PCS; principal; 2017-05-16 10:21)
DX: S82.842A Displaced bimalleolar fracture of left lower leg, initial encounter for closed fracture (principal); N18.4 Chronic kidney disease, stage 4 (severe); I95.9 Hypotension, unspecified; E11.22 Type 2 diabetes mellitus with diabetic chronic kidney disease; Z68.43 Body mass index [BMI] 50.0-59.9, adult; Q78.0 Osteogenesis imperfecta; N39.0 Urinary tract infection, site not specified; I12.9 Hypertensive chronic kidney disease with stage 1 through stage 4 chronic kidney disease, or unspecified chronic kidney disease; E66.9 Obesity, unspecified; R29.6 Repeated falls; K21.9 Gastro-esophageal reflux disease without esophagitis; E03.9 Hypothyroidism, unspecified; R07.81 Pleurodynia; B96.20 Unspecified Escherichia coli [E. coli] as the cause of diseases classified elsewhere; W01.0XXA Fall on same level from slipping, tripping and stumbling without subsequent striking against object, initial encounter; Z16.23 Resistance to quinolones and fluoroquinolones; Z79.4 Long term (current) use of insulin; Z86.73 Personal history of transient ischemic attack (TIA), and cerebral infarction without residual deficits; Z88.0 Allergy status to penicillin; Z88.2 Allergy status to sulfonamides; Z96.652 Presence of left artificial knee joint; Z98.1 Arthrodesis status; Z98.84 Bariatric surgery status
CPT/HCPCS: 70450; 71110; 73600; 73610; 76000; 80048; 81001; 82948; 85025; 85610; 85730; 87077; 87086; 87186; 93005; 93306; 93880; 94150; 96374; C1713; J0131; J0744; J1170; J1650; J1815; J1885; J2270; J3370; J7030; J7050; J7120

== ENCOUNTER 2017-11-07 16:57 | Emergency (ER) | payer MEDICARE, OTHER ==
[~2017-11-07] VITALS: Ht 152.4 cm; Wt 100.0 kg
[~2017-11-07 16:57] MED LIST changes: +ASPI-183 PO; +CEFU1TAB20 PO; +ENOX30P SQ; -IBUP-232 PO
[2017-11-07 17:05] VITALS: BP 133/56; PULSE 96; RESP 18; TEMP 98.2; O2SAT 96
[2017-11-07] MEDS ORDERED: SODIUM CHLORIDE 0.9% FLUSH 10 ML FLUSH IVF PRN (17:30)
[2017-11-07 17:35] VITALS: O2SAT 96
--- NOTE | 2017-11-07 17:40 | PD ---
HPI Chief Complaint: Fall Time Seen by Provider: 17:12 Travel History International Travel<30 days: No Contact w/Intl Traveler<30days: No Traveled to known affect area: No History of Present Illness HPI This is a 67-year-old female who presents to the emergency department with syncope. She says for the past month she has been having episodes of syncope where she goes to stand up, feels lightheaded and then passes out. Today she passed out and she hit her head. She denies any associated chest pain or trouble breathing. Her symptoms lasted several seconds and then subsided. She reports that she has been increasingly weak and has had dyspnea on exertion for the past month. She denies any black stools or blood in her stools. She says she is on hospice care with [facility]. She says she was approached by them when they were evaluating her who had cancer and she enrolled. She reports that she has no terminal illness that she is aware of. She says that they britni some blood work on her but she does not know the results. PFSH Past Medical History Cardiovascular Problems: Yes High Cholesterol: Yes Chemotherapy: Yes Cerebrovascular Accident: Yes Diabetes: Yes Hypertension: Yes Kidney Stones: Yes Musculoskeletal: Yes (OSTEOGENIC IMPERFECTA) Respiratory: Yes Migraines: Yes Renal Failure: Yes Menopausal: Yes Past Surgical History Abdominal Surgery: Yes (PATCHES IN ABD) Appendectomy: Yes Cholecystectomy: Yes Hysterectomy: Yes Other Surgery: Yes (L TOTAL KNEE, NECK) Social History Alcohol Use: No Tobacco Use: No Substance Use: No Allergies-Medications (Allergen,Severity, Reaction): Coded Allergies: Sulfa (Sulfonamide Antibiotics) (Unverified Allergy, Unknown, 11/07/17) aripiprazole (Unverified Allergy, Unknown, 11/07/17) fentanyl (Unverified Allergy, Unknown, 11/07/17) penicillin G (Unverified Allergy, Unknown, 11/07/17) Reported Meds & Prescriptions Reported Meds & Active Scripts Active Reported Risperidone 0.5 Mg Tab 0.5 Mg PO HS Flexeril (Cyclobenzaprine HCl) 10 Mg Tab 10 Mg PO TID Amitriptyline (Amitriptyline HCl) 50 Mg Tab 50 Mg PO HS Methadone (Methadone HCl) 10 Mg Tab 30 Mg PO DAILY Metformin (Metformin HCl) 500 Mg Tab 500 Mg PO BIDPC Pantoprazole (Pantoprazole Sodium) 40 Mg Tab 40 Mg PO DAILY Levothyroxine (Levothyroxine Sodium) 88 Mcg Tab 88 Mcg PO DAILY Cetirizine (Cetirizine HCl) 10 Mg Tab 10 Mg PO DAILY Trazodone (Trazodone HCl) 100 Mg Tablet 100 Mg PO HS Review of Systems Except as stated in HPI: all other systems reviewed are Neg Physical Exam Narrative GENERAL: Pale, no acute distress SKIN: Dry with skin tenting HEAD: 3 cm hematoma on the right temporal skull EYES: Pupils equal and round. No injection or drainage. Pale conjunctivae ENT: Moist mucous membranes NECK: Trachea midline. CARDIOVASCULAR: Regular rate and rhythm. No murmur appreciated. RESPIRATORY: Clear to auscultation. Breath sounds equal bilaterally. GASTROINTESTINAL: Abdomen soft, non-tender, nondistended. MUSCULOSKELETAL: No obvious deformities. NEUROLOGICAL: Awake and alert. No obvious cranial nerve deficits. Moving all extremities. PSYCHIATRIC: Appropriate mood and affect; insight and judgment normal. Data Data Last Documented VS Vital Signs Date Time Temp Pulse Resp B/P (MAP) Pulse Ox O2 Delivery O2 Flow Rate FiO2 11/07/17 17:35 96 Room Air 11/07/17 17:05 98.2 96 18 133/56 (81) Orders Orders Electrocardiogram (11/07/17 17:21) Complete Blood Count With Diff (11/07/17 17:21) Comprehensive Metabolic Panel (11/07/17 17:21) Troponin I (11/07/17 17:21) Urinalysis - C+S If Indicated (11/07/17 17:21) Ct Brain W/O Iv Contrast(Rout) (11/07/17 17:21) Ct Cerv Spine W/O Contrast (11/07/17 17:21) Ecg Monitoring (11/07/17 17:21) Iv Access Insert/Monitor (11/07/17 17:21) Oximetry (11/07/17 17:21) Sodium Chloride 0.9% Flush (Ns Flush) (11/07/17 17:30) Sodium Chlor 0.9% 1000 Ml Inj (Ns 1000 M (11/07/17 18:15) Urine Culture (11/07/17 18:15) Labs Laboratory Tests Test 11/07/17 17:37 11/07/17 18:15 White Blood Count 5.6 TH/MM3 Red Blood Count 3.55 MIL/MM3 Hemoglobin 11.3 GM/DL Hematocrit 34.2 % Mean Corpuscular Volume 96.5 FL Mean Corpuscular Hemoglobin 31.7 PG Mean Corpuscular Hemoglobin Concent 32.9 % Red Cell Distribution Width 13.8 % Platelet Count 184 TH/MM3 Mean Platelet Volume 9.3 FL Neutrophils (%) (Auto) 60.5 % Lymphocytes (%) (Auto) 17.3 % Monocytes (%) (Auto) 9.5 % Eosinophils (%) (Auto) 11.6 % Basophils (%) (Auto) 1.1 % Neutrophils # (Auto) 3.4 TH/MM3 Lymphocytes # (Auto) 1.0 TH/MM3 Monocytes # (Auto) 0.5 TH/MM3 Eosinophils # (Auto) 0.6 TH/MM3 Basophils # (Auto) 0.1 TH/MM3 CBC Comment DIFF FINAL Differential Comment Blood Urea Nitrogen 16 MG/DL Creatinine 1.40 MG/DL Random Glucose 127 MG/DL Total Protein 5.7 GM/DL Albumin 2.6 GM/DL Calcium Level 8.2 MG/DL Alkaline Phosphatase 111 U/L Aspartate Amino Transf (AST/SGOT) 58 U/L Alanine Aminotransferase (ALT/SGPT) 50 U/L Total Bilirubin 0.5 MG/DL Sodium Level 138 MEQ/L Potassium Level 3.9 MEQ/L Chloride Level 105 MEQ/L Carbon Dioxide Level 25.2 MEQ/L Anion Gap 8 MEQ/L Estimat Glomerular Filtration Rate 38 ML/MIN Troponin I LESS THAN 0.02 NG/ML Urine Color YELLOW Urine Turbidity CLEAR Urine pH 6.0 Urine Specific Icard 1.015 Urine Protein NEG mg/dL Urine Glucose (UA) NEG mg/dL Urine Ketones NEG mg/dL Urine Occult Blood NEG Urine Nitrite NEG Urine Bilirubin NEG Urine Urobilinogen 1.0 MG/DL Urine Leukocyte Esterase MOD Urine RBC 0-3 /hpf Urine WBC 9-14 /hpf Urine Squamous Epithelial Cells 0-5 /hpf Urine Transitional Epithelial Cells 0-5 /hpf Urine Bacteria FEW /hpf Microscopic Urinalysis Comment CULTURE INDICATED MDM Medical Decision Making Medical Screen Exam Complete: Yes Emergency Medical Condition: Yes Interpretation(s) EKG: Sinus tachycardia, no ST changes Afebrile, mild tachycardia Mild anemia Renal insufficiency Troponin is normal Urinalysis demonstrates infection Last [address] 11/07/17 5271 Signed Impressions: CONCLUSION: 1. No acute intracranial abnormalities. Cervical Spine CT 11/07/17 1721 Signed Impressions: CONCLUSION: 1. Fusion at C3-4-5. No acute fracture. Differential Diagnosis Intracranial hemorrhage, cervical spine fracture, arrhythmia, myocardial infarction, anemia, urinary tract infection Narrative Course This is a 67-year-old female who presents to the emergency department with increasing fatigue and an episode of syncope today where she hit her head. She is placed in a monitor and an IV was established. EKG demonstrates no arrhythmia or ischemia. Labs demonstrate renal insufficiency and urinalysis demonstrates a urinary tract infection. Clinically the patient appears dehydrated. She was given a liter of IV fluid. I suspect her syncope is in the setting of dehydration and urinary tract infection although she requires a more complete outpatient workup by primary care physician. I did offer her admission but she has an ill at home and does not want to stay. Patient will be discharged home on oral antibiotic therapy and was asked to increase her oral fluid intake. Diagnosis Primary Impression: Dehydration Additional Impression: UTI (urinary tract infection) Qualified Codes: N30.00 - Acute cystitis without hematuria Patient Instructions: General Instructions Additional Instructions: If you develop fever, persistent vomiting, back pain, or inability to eat return to the emergency department as your urine infection may have progressed to a kidney infection. Complete your antibiotics as prescribed. Stay well hydrated with Gatorade or water. Followup with your primary care physician in 2-3 days if your symptoms have not resolved. Med/Other Pt SpecificInfo: Prescription(s) given Scripts Ciprofloxacin (Ciprofloxacin) 500 Mg Tab 500 MG PO BID for Infection for 5 Days, #10 TAB 0 Refills Prov: An Pelayo MD 11/07/17 Disposition: 01 DISCHARGE HOME Condition: Stable An Pelayo MD Nov 07, 2017 17:40
[2017-11-07 17:42] LABS: AUTOMATED NEUTROPHIL # 3.4 TH/MM3 (1.8-7.7); BASOPHIL # 0.1 TH/MM3 (0-0.2); BASOPHIL % 1.1 % (0.0-2.0); EOSINOPHIL # 0.6 TH/MM3 (0-0.4); EOSINOPHIL % 11.6 % (0.0-4.0); HEMATOCRIT 34.2 % (35.0-46.0); HEMOGLOBIN 11.3 GM/DL (11.6-15.3); LYMPH % 17.3 % (9.0-44.0); MEAN CELL VOLUME 96.5 FL (80.0-100.0); MEAN CORPUSCULAR HEMOGLOBIN 31.7 PG (27.0-34.0); MEAN CORPUSCULAR HGB CONC 32.9 % (32.0-36.0); MEAN PLATELET VOLUME 9.3 FL (7.0-11.0); MONO % 9.5 % (0.0-8.0); MONOCYTE # 0.5 TH/MM3 (0-0.9); NEUT % 60.5 % (16.0-70.0); PLATELET COUNT 184 TH/MM3 (150-450); RED BLOOD COUNT 3.55 MIL/MM3 (4.00-5.30); RED CELL DISTRIBUTION WIDTH 13.8 % (11.6-17.2); WHITE BLOOD COUNT 5.6 TH/MM3 (4.0-11.0)
[2017-11-07 17:53] LABS: CHLORIDE 105 MEQ/L (98-107); SODIUM (NA) 138 MEQ/L (136-145)
[2017-11-07 17:57] LABS: ALBUMIN 2.6 GM/DL (3.4-5.0); BICARBONATE 25.2 MEQ/L (21.0-32.0); BLOOD UREA NITROGEN 16 MG/DL (7-18); CALCIUM 8.2 MG/DL (8.5-10.1); GLUCOSE,RANDOM 127 MG/DL (74-106)
[2017-11-07 18:00] LABS: ALT (GPT) 50 U/L (10-53); AST (GOT) 58 U/L (15-37); GLOMERULAR FILTRATION RATE 38 ML/MIN (>89)
[2017-11-07 18:02] LABS: TOTAL BILIRUBIN ADULT 0.5 MG/DL (0.2-1.0); TOTAL PROTEIN 5.7 GM/DL (6.4-8.2)
[2017-11-07 18:03] LABS: ALKALINE PHOSPHATASE 111 U/L (45-117)
[2017-11-07 18:05] LABS: TROPONIN I LESS THAN 0.02 NG/ML (0.02-0.05)
--- NOTE | 2017-11-07 18:09 | RADRPT ---
EXAM DATE: 11/07/2017 5:57 PM EDT AGE/SEX: 67 years / Female INDICATIONS: Fell and hit head. CLINICAL DATA: This is the patient's initial encounter. Patient reports that signs and symptoms have been present for 1 day and indicates a pain score of 5/10. MEDICAL/SURGICAL HISTORY: Cerebrovascular disease. Hypertension. Renal disease. Cervical cancer. Fusion, cervical. Hysterectomy. Appendectomy. Cholecystectomy. RADIATION DOSE: 62.92 CTDI (mGy) COMPARISON: [place], CT BRAIN W/O CONTRAST, 05/15/2017. . TECHNIQUE: CT of the head without contrast. Using automated exposure control and adjustment of the mA and/or kV according to patient size, radiation dose was kept as low as reasonably achievable to ob tain optimal diagnostic quality images. DICOM format image data is available electronically for revi ew and comparison. FINDINGS: Cerebrum: The ventricles are normal for age. No evidence of midline shift, mass lesion, hemorrhage or acute infarction. No extraaxial fluid collections are seen. Posterior Fossa: The cerebellum and brainstem are intact. The 4th ventricle is midline. The cerebe llopontine angle is unremarkable. Extracranial: The visualized portion of the orbits is intact. Skull: The calvaria is intact. No evidence of skull fracture. CONCLUSION: 1. No acute intracranial abnormalities. Electronically signed by: Karthik Bah MD 11/07/2017 6:08 PM EDT
--- NOTE | 2017-11-07 18:12 | RADRPT ---
EXAM DATE: 11/07/2017 6:02 PM EDT AGE/SEX: 67 years / Female INDICATIONS: Fell and hit head. CLINICAL DATA: This is the patient's initial encounter. Patient reports that signs and symptoms have been present for 1 day and indicates a pain score of 6/10. MEDICAL/SURGICAL HISTORY: Cerebrovascular disease. Hypertension. Renal disease. Cervical can cer. Fusion, cervical. Hysterectomy. Appendectomy. Cholecystectomy. RADIATION DOSE: 24.51 CTDI (mGy) COMPARISON: No prior exams available for comparison. TECHNIQUE: Contiguous axial images were obtained using helical multirow detector technique. The vol umetric data was post-processed with multiplanar reconstruction in oblique axial, sagittal, and coron al planes. Using automated exposure control and adjustment of the mA and/or kV according to patient s ize, radiation dose was kept as low as reasonably achievable to obtain optimal diagnostic quality imtiaz ges. DICOM format image data is available electronically for review and comparison. FINDINGS: There are postoperative changes of fusion across C3-4-5. Moderate degenerative disc disease. No canal stenosis. No acute fracture or spondylolisthesis. CONCLUSION: 1. Fusion at C3-4-5. No acute fracture. Electronically signed by: Karthik Bah MD 11/07/2017 6:10 PM EDT
[2017-11-07] MEDS ORDERED: SODIUM CHLOR 0.9% 1000 ML INJ 1,000 ML IV ONE (18:15)
[2017-11-07] MEDS ORDERED: CYCL10TA PO (18:21)
[2017-11-07] MEDS ORDERED: AMIT50TA3 PO (18:21)
[2017-11-07] MEDS ORDERED: METF500T PO (18:21)
[2017-11-07] MEDS ORDERED: RISP0.5T2 PO (18:21)
[2017-11-07] MEDS ORDERED: METH10TA PO (18:21)
[2017-11-07 18:22] LABS: BILIRUBIN, URINE NEG (NEG); BLOOD, URINE NEG (NEG); GLUCOSE,URINE NEG (NEG); KETONE, URINE NEG (NEG); NITRITE,URINE NEG (NEG); URINE COLOR YELLOW (YELLW/STRAW); URINE LEUKOCYTE ESTERASE MOD (NEG)
[2017-11-07 18:46] LABS: RBC, URINE 0-3 /hpf (0-3)
[2017-11-07 18:47] LABS: BACTERIA, URINE FEW /hpf; SQUAMOUS EPITHELIAL CELL URINE 0-5 /hpf (0-5); TRANSITIONAL EPI CELLS, URINE 0-5 /hpf
[2017-11-07] MEDS ORDERED: CIPR500T2 PO (19:04)
[2017-11-07 19:54] VITALS: BP 141/77
[2017-11-07 20:09] VITALS: BP 130/55; PULSE 84; RESP 18; O2SAT 96
--- NOTE | 2017-11-08 17:02 | EKG ---
Date Performed: 11/07/2017 Time Performed: 18:29:47 PTAGE: 67 years EKG: SINUS TACHYCARDIA ABNORMAL RHYTHM ECG PREVIOUS TRACING : 05/16/2017 04.39 Since the previous tracing, no significant change noted DOCTOR: Christy Dinero Interpretating Date/Time 11/08/2017 17:00:19
== END 2017-11-07 20:11 | disposition home or self-care (01) ==
LOC: PHED 16:57
DX: E86.0 Dehydration (principal); N30.00 Acute cystitis without hematuria; E11.9 Type 2 diabetes mellitus without complications; I10 Essential (primary) hypertension; R94.31 Abnormal electrocardiogram [ECG] [EKG]; D64.9 Anemia, unspecified; N28.9 Disorder of kidney and ureter, unspecified
CPT/HCPCS: 70450; 72125; 80053; 81001; 84484; 85025; 87086; 93005; 99285; J7030